=== PATIENT | female | born 1985 | race Caucasian/White ===

== ENCOUNTER 2016-07-18 11:59 | Emergency (ER) | payer MEDICAID ==
[2016-07-18 12:22] VITALS: BP 122/76
[2016-07-18] MEDS ORDERED: HYDROcod/ACETAM 5/325 MG TABLET PO STA (13:14)
[2016-07-18] MEDS ORDERED: HYDROcod/ACETAM 5/325 MG TABLET ONE (13:21)
--- NOTE | 2016-07-18 13:55 | XRAY Preliminary Report ---
Exam: XR Forearm RT IMPRESSION: Normal forearm radiography. [facility] SITE ID: [id number]
--- NOTE | 2016-07-18 13:58 | XRAY Report ---
EXAM: RIGHT FOREARM RADIOGRAPHY EXAM DATE: 07/18/2016 01:40 PM. CLINICAL HISTORY: Right forearm pain. COMPARISON: None. TECHNIQUE: 2 views. FINDINGS: Bones: Normal. No fractures or bone lesions. Joints: Normal. No effusions or subluxations in the visualized wrist or elbow joints. Soft Tissues: soft tissue swelling. IMPRESSION: Normal forearm radiography. [facility] Referring Provider Line: [phone] SITE ID: [id number]
--- NOTE | 2016-07-18 14:36 | ED Physician Documentation ---
PD HPI UPPER EXT INJURY - Stated complaint Stated Complaint: R ARM PX/TINGLING - Chief complaint Chief Complaint: Ext Problem - History obtained from History obtained from: Patient - History of Present Illness Location: Right, Forearm Type of injury: Fall Timing - details: Still present Worsened by: Moving, Palpating Associated symptoms: No: Weakness, Numbness Similar symptoms before: Has not had sx before - Additonal information Additional information: The patient is a 30-year-old female who complains of sharp pain in her right forearm. She fell into a three-foot hole one week ago, and presents now because of continued pain in the right forearm, worse today than previously. She is right hand dominant. She denies any other injuries. She has no history of similar symptoms in the past. Review of Systems Constitutional: denies: Fever Nose: denies: Congestion Cardiac: denies: Chest pain / pressure Respiratory: denies: Dyspnea GI: denies: Abdominal Pain Skin: denies: Rash, Abrasion (s) Musculoskeletal: reports: Extremity pain (right forearm). 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 : None HEENT: None Psych: Depression, Anxiety Musculoskeletal: Fibromyalgia Derm: None - Past Surgical History Past Surgical History: Yes Ortho: Other /SENIOR SOFTWARE ANALYST: Tubal ligation HEENT: Other - Present Medications Home Medications: Ambulatory Orders Medication Instructions Recorded Confirmed Bupropion HCl [Wellbutrin] 300 mg PO DAILY 07/12/13 07/18/16 Escitalopram [Lexapro] 20 mg PO DAILY 07/18/16 07/18/16 HYDROcod/ACETAM 5/325 [[place] 5/325] 1 - 2 ea PO Q6H PRN #20 tablet 07/18/16 - Allergies Allergies/Adverse Reactions: Allergies Allergy/AdvReac Type Severity Reaction Status Date / Time No Known Drug Allergies Allergy Verified 07/03/14 00:33 - Social History Does the pt smoke?: No Smoking Status: Former smoker Does the pt drink ETOH?: Yes Does the pt have substance abuse?: No - Immunizations Immunizations are current?: Yes - POLST Patient has POLST: No PD ED PE NORMAL - Vitals Vital signs reviewed: Yes (normal) - General General: Alert and oriented X 3, Well developed/nourished - HEENT HEENT: Atraumatic - Neck Neck: No bony TTP - Cardiac Cardiac: RRR - Respiratory Respiratory: No respiratory distress - Derm Derm: No rash - Extremities Extremities: No deformity, Other (There is tenderness to palpation along the ulnar aspect of the right proximal forearm. There is no swelling, erythema, or ecchymosis. She has full range of motion of the wrist and elbow, including supination and pronation of the forearm. Distal neurovascular is intact.) - Neuro Neuro: Alert and oriented X 3, No motor deficit, No sensory deficit Results - Vitals Vitals: Oxygen O2 Source Room air - Rads (name of study) Right forearm Radiology: Prelim report reviewed, EMP read contemporaneously, See rad report ( Normal forearm radiography.) PD MEDICAL DECISION MAKING - ED course Complexity details: reviewed results, re-evaluated patient, considered differential, d/w patient ED course: The patient's presentation is significant for muscular strain versus contusion of the right forearm. There is no evidence of bony abnormality on x-ray examination. Treatment in the emergency department included administration of Vicodin one tablet orally. She is being discharged with prescription for Vicodin, 20 tablets. I discussed with her the expected course of healing, symptomatic treatment and outpatient follow-up, as well as potentially worrisome signs or symptoms that should prompt reevaluation in the emergency department. Departure - Departure Disposition: 01 Home, Self Care Clinical Impression: Pain of upper extremity Qualifiers: Laterality: right Qualified Code(s): M79.601 - Pain in right arm Condition: Stable Instructions: ED Strain Muscle Ext Follow-Up: Katlyn Lindsay MD [Primary Care Provider] - Prescriptions: HYDROcod/ACETAM 5/325 [[place] 5/325] 1 - 2 ea PO Q6H PRN #20 tablet PRN Reason: Pain Comments: Keep your right arm elevated as much the time as possible. You can use ibuprofen, up to 800 mg 3 times daily for its anti-inflammatory effect. You can use Vicodin as prescribed if needed for pain. Follow up with your primary physician within one to 2 weeks. Call to schedule an appointment. Return to the emergency department if you develop increasing pain or swelling, increasing numbness or weakness, or otherwise worsening symptoms. Discharge Date/Time: 07/18/16 14:54
== END 2016-07-18 14:54 | disposition home or self-care (01) ==
LOC: ED 11:59
DX: M79.631 Pain in right forearm (principal); W17.2XXA Fall into hole, initial encounter; Z87.891 Personal history of nicotine dependence
CPT/HCPCS: 73090; 99283; A9270

== ENCOUNTER 2016-11-20 18:19 | Emergency (ER) | payer MEDICAID ==
[2016-11-20] MEDS ORDERED: SODIUM CHLORIDE 0.9% 1,000 ML IV ONE (19:08)
[2016-11-20] MEDS ORDERED: MORPHINE 10 MG/ML VIAL IVP STA (19:09)
--- NOTE | 2016-11-20 19:11 | ED Physician Documentation ---
PD HPI ABD PAIN - Stated complaint Stated Complaint: BACK PX - Chief complaint Chief Complaint: Back Pain - History obtained from History obtained from: Patient - History of Present Illness Timing - onset: Other (31-year-old with history of tubal ligation and fibromyalgia presents with 4 days of left-sided back pain radiating from the flank down to the posterior pelvis and around to the front associated with nausea but no vomiting and chills and a low-grade fever to 100.2 today and shakes. She feels like she might be hypoglycemic. She was seen at [facility] yesterday, she said she had a normal urinalysis but is being treated for presumptive pyelonephritis. 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 : None HEENT: None Psych: Depression, Anxiety Musculoskeletal: Fibromyalgia Derm: None - Past Surgical History Past Surgical History: Yes 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 HEENT: Other - Present Medications Home Medications: Ambulatory Orders Medication Instructions Recorded Confirmed Bupropion HCl [Wellbutrin] 300 mg PO DAILY 07/12/13 11/20/16 Escitalopram [Lexapro] 20 mg PO DAILY 07/18/16 11/20/16 Dextroamphetamine/Amphetamine 20 mg PO DAILY 11/20/16 11/20/16 [Adderall 20 mg Tablet] Dextroamphetamine/Amphetamine 30 tab PO DAILY 11/20/16 11/20/16 [Adderall 30 mg Tablet] HYDROcod/ACETAM 5/325 [[place] 5/325] 1 - 2 ea PO Q6H PRN #15 tablet 11/20/16 Promethazine [Phenergan] 25 - 50 mg PO Q6H PRN #15 tab 11/20/16 - Allergies Allergies/Adverse Reactions: Allergies Allergy/AdvReac Type Severity Reaction Status Date / Time No Known Drug Allergies Allergy Verified 07/03/14 00:33 - Social History Does the pt smoke?: No Smoking Status: Former smoker Does the pt drink ETOH?: Yes Does the pt have substance abuse?: No - Immunizations Immunizations are current?: Yes - POLST Patient has POLST: No PD ED PE NORMAL - Vitals Vital signs reviewed: Yes - General General: Alert and oriented X 3, No acute distress - HEENT HEENT: PERRL, EOMI - Cardiac Cardiac: RRR, No murmur - Respiratory Respiratory: No respiratory distress, Clear bilaterally - Abdomen Abdomen: Normal bowel sounds, Soft, Non tender - Back Back: No CVA TTP - Extremities Extremities: No edema, No calf tenderness / cord - Neuro Neuro: Alert and oriented X 3, Normal speech - Psych Psych: Normal mood, Normal affect Results - Vitals Vitals: Vital Signs - 24 hr 11/20/16 11/20/16 18:36 19:39 Temperature 35.6 C L 36.3 C L Heart Rate 83 71 Respiratory 18 17 Rate Blood Pressure 131/93 H 124/75 O2 Saturation 100 100 Oxygen O2 Source Room air - Labs Labs: Laboratory Tests 11/20/16 11/20/16 11/20/16 19:17 19:27 19:27 WBC 8.5 RBC 4.88 Hgb 13.8 Hct 41.6 MCV 85.3 MCH 28.3 MCHC 33.2 RDW 13.1 Plt Count 314 MPV 8.5 Neut # 4.8 Lymph # 2.5 [place] # 0.7 Eos # 0.5 Baso # 0.1 Absolute Nucleated RBC 0.01 Nucleated RBC % 0.1 Sodium 144 Potassium 3.9 Chloride 105 Carbon Dioxide 26 Anion Gap 13.0 BUN 12 Creatinine 1.2 H Estimated GFR (MDRD) 53 L Glucose 91 Calcium 9.8 Total Bilirubin 0.3 AST 26 ALT 21 Alkaline Phosphatase 77 Total Protein 7.9 Albumin 4.5 Globulin 3.4 Albumin/Globulin Ratio 1.3 Lipase 31 Urine Color YELLOW Urine Clarity CLEAR Urine pH 7.5 Ur Specific [place] 1.015 Urine Protein NEGATIVE Urine Glucose (UA) NEGATIVE Urine Ketones NEGATIVE Urine Occult Blood NEGATIVE Urine Nitrite NEGATIVE Urine Bilirubin NEGATIVE Urine Urobilinogen 0.2 (NORMAL) Ur Leukocyte Esterase NEGATIVE Ur Microscopic Review NOT INDICATED Urine Culture Comments NOT INDICATED Urine HCG, Qual NEGATIVE PD MEDICAL DECISION MAKING - ED course ED course: 31-year-old woman with left-sided back pain with some constitutional symptoms of nausea and low-grade fevers, she said she was seen at [facility] last night and diagnosed with pyelonephritis despite the fact that her urinalysis was negative which continues to be tonight. Her blood work is reassuring without any significant abnormalities. She felt better after pain and nausea medicine as well as IV fluids. Discussed with her that the etiology of her pain is not immediately clear, but she should monitor her symptoms closely and return for any new or worsening symptoms. Departure - Departure Disposition: 01 Home, Self Care Clinical Impression: Dehydration Back pain Qualifiers: Back pain location: low back pain Chronicity: acute Back pain laterality: left Sciatica presence: without sciatica Qualified Code(s): M54.5 - Low back pain Condition: Good Record reviewed to determine appropriate education?: Yes Instructions: ED Acute Pain [facility] Prescriptions: HYDROcod/ACETAM 5/325 [[place] 5/325] 1 - 2 ea PO Q6H PRN #15 tablet PRN Reason: Pain Promethazine [Phenergan] 25 - 50 mg PO Q6H PRN #15 tab PRN Reason: Nausea / Vomiting Comments: Call your doctor to arrange a follow-up appointment, make the next available appointment. In the interim, return anytime if worse or if new symptoms develop. Do not drink or drive while taking narcotic pain medication. Note that many narcotic pain relievers also contain Tylenol/acetaminophen. Please ensure that your total dose of acetaminophen from all sources does not exceed 3 g (3000 mg) per day. You may get constipated while on this medication. Take a stool softener such as Colace twice a day while you are on it. Also add an tyuz-gus-zihlkql laxative such as senna or MiraLAX on any day that you do not have a bowel movement. If you received a narcotic pain medication or sedative while in the emergency department, do not drive for the next 24 hours.
[2016-11-20 19:24] LABS: BILIRUBIN,URINE NEGATIVE (NEGATIVE); PH,URINE 7.5 PH (5.0-7.5)
[2016-11-20 19:26] LABS: HCG UR QUAL NEGATIVE; UA CHARGE (STRIP ONLY) YES; UR CULTURE IF IND NOT INDICATED
[2016-11-20] MEDS ORDERED: ONDANSETRON 4 MG/2 ML VIAL IVP STA (19:34)
[2016-11-20] MEDS ORDERED: MORPHINE 10 MG/ML VIAL ONE (19:42)
[2016-11-20] MEDS ORDERED: ONDANSETRON 4 MG/2 ML VIAL ONE (19:42)
[2016-11-20 19:43] LABS: BASOPHILS # (AUTO) 0.1 10^3/uL (0.0-0.1); BASOPHILS % (AUTO) 0.7 %; EOSINOPHILS # (AUTO) 0.5 10^3/uL (0.0-0.7); EOSINOPHILS % (AUTO) 5.8 %; HCT - HEMATOCRIT 41.6 % (37.0-47.0); HGB - HEMOGLOBIN 13.8 g/dL (12.0-16.0); LYMPHOCYTES # (AUTO) 2.5 10^3/uL (1.5-3.5); LYMPHOCYTES % (AUTO) 29.5 %; MEAN CORPUSCULAR HEMOGLOBIN 28.3 pg (27.0-31.0); MEAN CORPUSCULAR HGB CONC 33.2 g/dL (32.0-36.0); MEAN CORPUSCULAR VOLUME 85.3 fL (81.0-99.0); MEAN PLATELET VOLUME 8.5 fL (7.9-10.8); MONOCYTES # (AUTO) 0.7 10^3/uL (0.0-1.0); MONOCYTES % (AUTO) 7.8 %; NEUTROPHILS # (AUTO) 4.8 10^3/uL (1.5-6.6); NEUTROPHILS % (AUTO) 56.2 %; NUCLEATED RED BLOOD CELLS AUTO 0.1 /100WBC; RED BLOOD COUNT 4.88 10^6/uL (4.20-5.40); RED CELL DISTRIBUTION WIDTH 13.1 % (12.0-15.0); UNCORRECTED WHITE BLOOD COUNT 8.5 x10^3/uL; WHITE BLOOD COUNT 8.5 x10^3/uL (4.8-10.8)
[2016-11-20 19:52] LABS: ALBUMIN/GLOBULIN RATIO 1.3 (1.0-2.2); BILIRUBIN,TOTAL 0.3 mg/dL (0.2-1.0); CALCIUM 9.8 mg/dL (8.5-10.3); CREATININE 1.2 mg/dL (0.4-1.0); POTASSIUM 3.9 mmol/L (3.5-5.0); TOTAL PROTEIN 7.9 g/dL (6.7-8.2)
[2016-11-20] MEDS ORDERED: HYDROcod/ACET 5/325 Prepack 6 PO STA (20:54)
[2016-11-20] MEDS ORDERED: HYDROcod/ACET 5/325 Prepack 6 PO ONE (21:02)
[2016-11-20 21:06] VITALS: BP 125/70
== END 2016-11-20 21:20 | disposition home or self-care (01) ==
LOC: ED 18:19
DX: E86.0 Dehydration (principal); M54.5 Low back pain; M79.7 Fibromyalgia; Z87.891 Personal history of nicotine dependence
CPT/HCPCS: 36415; 80053; 81001; 81003; 81025; 83690; 85025; 87086; 96361; 96374; 96375; 99283

== ENCOUNTER 2016-11-28 15:25 | Outpatient (CLI) | payer MEDICAID ==
[2016-11-28 19:34] LABS: CHOL/HDL RATIO 2.9 (<4.4); CHOLESTEROL 212 mg/dL; HDL CHOLESTEROL 72 mg/dL; LDL/HDL RATIO 1.7 (<4.4); TRIGLYCERIDES 97 mg/dL; VLDL CHOLESTEROL 19 mg/dL
== END 2016-11-28 15:26 | disposition home or self-care (01) ==
LOC: LAB.N 15:25
PROVIDERS: ATTEND Nurse Practitioner Gerontology
DX: Z13.9 Encounter for screening, unspecified (principal)
CPT/HCPCS: 36415; 80061

== ENCOUNTER 2017-04-11 09:47 | Emergency (ER) | payer MEDICAID ==
--- NOTE | 2017-04-11 10:22 | ED Physician Documentation ---
History of Present Illness - Stated complaint Stated Complaint: LOWER ABD PX/BACK PX - Chief complaint Chief Complaint: Abd Pain - Additonal information Additional information: hx from pt 31 f s/p tubal to ED with lower abd pain rad to RLQ and R flank since yesterday AM no fever NVD bloody mucous BM today no vag bleed or dc no dysuria Review of Systems Constitutional: denies: Fever, Chills Cardiac: denies: Chest pain / pressure GI: reports: Abdominal Pain, Bloody / black stool. denies: Nausea, Vomiting, Diarrhea : reports: Control (tubal). 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: Tubal ligation HEENT: Other - Present Medications Home Medications: Ambulatory Orders Medication Instructions Recorded Confirmed Bupropion HCl [Wellbutrin] 300 mg PO DAILY 07/12/13 11/20/16 Escitalopram [Lexapro] 20 mg PO DAILY 07/18/16 11/20/16 Dextroamphetamine/Amphetamine 20 mg PO DAILY 11/20/16 11/20/16 [Adderall 20 mg Tablet] Dextroamphetamine/Amphetamine 30 tab PO DAILY 11/20/16 11/20/16 [Adderall 30 mg Tablet] HYDROcod/ACETAM 5/325 [[place] 5/325] 1 - 2 ea PO Q6H PRN #15 tablet 11/20/16 Promethazine [Phenergan] 25 - 50 mg PO Q6H PRN #15 tab 11/20/16 Ibuprofen [Motrin] 400 mg PO Q6H PRN #20 tablet 04/11/17 Oxycodone HCl/Acetaminophen 1 each PO Q6HR PRN #10 tablet 04/11/17 [Percocet 5-325 mg Tablet] - Allergies Allergies/Adverse Reactions: Allergies Allergy/AdvReac Type Severity Reaction Status Date / Time No Known Drug Allergies Allergy Verified 07/03/14 00:33 - Social History Does the pt smoke?: No Smoking Status: Former smoker Does the pt drink ETOH?: Yes Does the pt have substance abuse?: No - Immunizations Immunizations are current?: Yes - POLST Patient has POLST: No PD ED PE NORMAL - Vitals Vital signs reviewed: Yes - Cardiac Cardiac: RRR - Respiratory Respiratory: No respiratory distress, Clear bilaterally - Abdomen Abdomen: Soft, Other (mod TTP low abd, no focal RLQ pain) - Rectal Rectal: Other (done with pt permissio after explaining indication - + hemorrhoid , no fissure, no vis blood, no stool to occult blood, no mass on OSCAR) Results - Vitals Vitals: Vital Signs - 24 hr 04/11/17 10:08 Temperature 36.4 C L Heart Rate 88 Respiratory 16 Rate Blood Pressure 118/69 O2 Saturation 100 Oxygen O2 Source Room air - Labs Labs: Laboratory Tests 04/11/17 04/11/17 04/11/17 10:27 10:27 12:11 WBC 5.3 RBC 4.73 Hgb 13.1 Hct 39.6 MCV 83.8 MCH 27.8 MCHC 33.1 RDW 13.9 Plt Count 238 MPV 8.5 Neut # 3.1 Lymph # 1.3 L [place] # 0.5 Eos # 0.4 Baso # 0.1 Absolute Nucleated RBC 0.00 Nucleated RBC % 0.0 Sodium 141 Potassium 3.5 Chloride 106 Carbon Dioxide 26 Anion Gap 9.0 BUN 9 Creatinine 0.8 Estimated GFR (MDRD) 84 L Glucose 62 L Calcium 9.3 Total Bilirubin 0.3 AST 25 ALT 16 Alkaline Phosphatase 65 Total Protein 7.7 Albumin 4.1 Globulin 3.6 Albumin/Globulin Ratio 1.1 Lipase 12 L Urine Color YELLOW Urine Clarity CLEAR Urine pH 7.0 Ur Specific [place] 1.020 Urine Protein NEGATIVE Urine Glucose (UA) NEGATIVE Urine Ketones NEGATIVE Urine Occult Blood NEGATIVE Urine Nitrite NEGATIVE Urine Bilirubin NEGATIVE Urine Urobilinogen 0.2 (NORMAL) Ur Leukocyte Esterase NEGATIVE Ur Microscopic Review NOT INDICATED Urine Culture Comments NOT INDICATED Urine HCG, Qual NEGATIVE - Rads (name of study) abd sono and pelvic sono with TV and doppler Radiology: See rad report (nl right kidney, appemdic non vis) PD MEDICAL DECISION MAKING - ED course ED course: ruptured hem ovarian cyst neg HCG and s/p tibal approx 20-30 cc per rad nl VS nl H/H and sx started yesterday feel safe to dc Departure - Departure Disposition: Home, Self Care Clinical Impression: Hemorrhagic cyst of right ovary Condition: Good Instructions: Cyst Ruptured Ovarian Tx Prescriptions: Oxycodone HCl/Acetaminophen [Percocet 5-325 mg Tablet] 1 each PO Q6HR PRN #10 tablet PRN Reason: Severe Pain Ibuprofen [Motrin] 400 mg PO Q6H PRN #20 tablet PRN Reason: Pain Comments: Your pain is form a rupture hemorrhagic (bleeding) ovarian cyst There is some blood in your pelvic cavity but not a dangerous amount and your blood count and vital signs are fine - so it is safe for you to go home It will take several days for the blood to reabsorb and the pain to subside - recommend motrin for mild pain and percocet if needed for severe pain It is possible for the cyst to start bleeding again, so if you feel worse ( severe pain, faint, weak) please come back to the ER right away Forms: Activity restrictions
[2017-04-11] MEDS ORDERED: MORPHINE 2 MG/ML CARPUJECT IVP STA ×2 (10:23→11:47)
[2017-04-11] MEDS ORDERED: SODIUM CHLORIDE 0.9% 1,000 ML IV ONE (10:23)
[2017-04-11 10:39] LABS: BASOPHILS # (AUTO) 0.1 10^3/uL (0.0-0.1); EOSINOPHILS # (AUTO) 0.4 10^3/uL (0.0-0.7); EOSINOPHILS % (AUTO) 6.7 %; HGB - HEMOGLOBIN 13.1 g/dL (12.0-16.0); LYMPHOCYTES # (AUTO) 1.3 10^3/uL (1.5-3.5); LYMPHOCYTES % (AUTO) 24.3 %; MEAN CORPUSCULAR HEMOGLOBIN 27.8 pg (27.0-31.0); MEAN CORPUSCULAR HGB CONC 33.1 g/dL (32.0-36.0); MEAN CORPUSCULAR VOLUME 83.8 fL (81.0-99.0); MEAN PLATELET VOLUME 8.5 fL (7.9-10.8); MONOCYTES # (AUTO) 0.5 10^3/uL (0.0-1.0); NEUTROPHILS # (AUTO) 3.1 10^3/uL (1.5-6.6); PLT - PLATELET COUNT 238 10^3/uL (130-450); RED BLOOD COUNT 4.73 10^6/uL (4.20-5.40); RED CELL DISTRIBUTION WIDTH 13.9 % (12.0-15.0); WHITE BLOOD COUNT 5.3 x10^3/uL (4.8-10.8)
[2017-04-11 10:54] LABS: ALBUMIN 4.1 g/dL (3.2-5.5); ALBUMIN/GLOBULIN RATIO 1.1 (1.0-2.2); BILIRUBIN,TOTAL 0.3 mg/dL (0.2-1.0); CALCIUM 9.3 mg/dL (8.5-10.3); CREATININE 0.8 mg/dL (0.4-1.0); TOTAL PROTEIN 7.7 g/dL (6.7-8.2)
[2017-04-11 12:38] LABS: BILIRUBIN,URINE NEGATIVE (NEGATIVE); GLUCOSE, URINE (UA) NEGATIVE (NEGATIVE); KETONES,URINE (UA) NEGATIVE (NEGATIVE); LEUKOCYTE ESTERASE, URINE NEGATIVE (NEGATIVE); NITRITE,URINE NEGATIVE (NEGATIVE); OCCULT BLOOD,URINE NEGATIVE (NEGATIVE); PROTEIN,URINE NEGATIVE (NEGATIVE); UROBILINOGEN,URINE 0.2 (NORMAL) E.U./dL (NORMAL)
[2017-04-11 12:41] LABS: CLARITY,URINE CLEAR (CLEAR); HCG UR QUAL NEGATIVE
--- NOTE | 2017-04-11 13:47 | Ultrasound Report ---
LIMITED ABDOMINAL ULTRASOUND: 04/11/2017 CLINICAL INDICATION: Right-sided pain, question hydronephrosis or appendicitis. TECHNIQUE: Real-time scanning was performed with employee's representative static images obtained. FINDINGS: Ultrasound of the right kidney and right lower quadrant was performed. The right kidney measures 10.3 x 5.7 x 3.2 cm. Renal cortical echotexture is normal. No hydronephrosis, solid renal mass, or perinephric collection is seen. Scanning of the right lower quadrant does not demonstrate the appendix. Trace free fluid is noted. No abnormal fluid collection or adenopathy is seen. IMPRESSION: NORMAL RIGHT KIDNEY. TRACE FREE FLUID IN THE RIGHT LOWER QUADRANT. NONVISUALIZATION OF THE APPENDIX. TD: 04/11/2017 13:46
--- NOTE | 2017-04-11 13:50 | Ultrasound Report ---
PELVIC ULTRASOUND WITH TRANSVAGINAL AND DOPPLER: 04/11/2017 CLINICAL INDICATION: Right greater than left pelvic pain. TECHNIQUE: Transabdominal pelvic ultrasound performed for global evaluation. Transvaginal pelvic ultrasound performed for detailed evaluation. Real-time scanning performed and static images obtained with Doppler. FINDINGS: The uterus is anteverted, measuring 5.1 x 4.3 x 3.9 cm. The endometrial echo complex measures 10 mm. No focal myometrial lesion is seen. The right ovary measures 4.6 x 3.0 x 2.9 cm, and contains a 2.5 x 2.4 x 2.3 cm hemorrhagic cyst. The left ovary measures 2.3 x 2.3 x 1.2 cm, and appears unremarkable. Both ovaries demonstrate normal flow. A moderate amount of free fluid is present in the cul-de-sac, tracking up into the right adnexa. IMPRESSION: A 2.5 CM HEMORRHAGIC RIGHT OVARIAN CYST, WITH A MODERATE AMOUNT OF FREE FLUID PRESENT. NO EVIDENCE OF OVARIAN TORSION. TD: 04/11/2017 13:49
[2017-04-11 15:22] VITALS: BP 122/68
== END 2017-04-11 14:45 | disposition home or self-care (01) ==
LOC: ED 09:47
DX: N83.201 Unspecified ovarian cyst, right side (principal); Z98.51 Tubal ligation status; Z87.891 Personal history of nicotine dependence
CPT/HCPCS: 36415; 76705; 76830; 76856; 80053; 81001; 81003; 81025; 83690; 85025; 87086; 93975; 96361; 96374; 96376; 99283; 99284

== ENCOUNTER 2017-04-12 23:05 | Emergency (ER) | payer MEDICAID ==
[2017-04-12] MEDS ORDERED: KETOROLAC 60 MG/2 ML VIAL IVP STA (23:12)
[2017-04-12] MEDS ORDERED: SODIUM CHLORIDE 0.9% 1,000 ML IV ONE (23:12)
--- NOTE | 2017-04-12 23:25 | ED Physician Documentation ---
PD HPI ABD PAIN - Stated complaint Stated Complaint: FEV/LIGHT HEAD - Chief complaint Chief Complaint: Abd Pain - History obtained from History obtained from: Patient - History of Present Illness Timing - onset: Yesterday Timing - details: Gradual onset, Still present Quality: Cramping, Aching Location: Suprapubic Radiation: Right flank Associated symptoms: Fever, Nausea. No: Vomiting, Hematemesis Similar symptoms before: Work up / diagnostics, Treatment Recently seen: Emergency Dept - Additional information Additional information: Patient is a 31 year old female with a history of depression and fibromyalgia who is presenting to the emergency department for abdominal pain, dizziness and fevers. According to previous notes and patient she was seen her yesterday and was diagnosed with a hemorrhagic cyst with minimal free fluid. Patient states that her pain came back today. Patient reports a fever of 101 and nausea as well. Review of Systems Constitutional: reports: Fever, Chills, Myalgias Eyes: denies: Decreased vision Ears: denies: Ear pain Nose: denies: Rhinorrhea / runny nose, Congestion Throat: denies: Sore throat Cardiac: denies: Chest pain / pressure, Palpitations Respiratory: denies: Dyspnea, Cough, Wheezing GI: reports: Abdominal Pain, Nausea. denies: Vomiting, Constipation, Diarrhea : denies: Dysuria, Frequency Skin: denies: Rash, Lesions Musculoskeletal: reports: Back pain. denies: Neck pain, Extremity pain, Joint pain Neurologic: reports: Generalized weakness. denies: Focal weakness, Numbness, Altered mental status, LOC Psychiatric: reports: Depressed Immunocompromised: denies: Immunocompromised PD PAST MEDICAL HISTORY - Past Medical History Past Medical History: Yes Cardiovascular: None Respiratory: None Neuro: None, Headache/migraine Endocrine/Autoimmune: None GI: None SPECIFICATIONS CHECKER: None : None HEENT: None Psych: Depression, Anxiety Musculoskeletal: Fibromyalgia Derm: None - Past Surgical History Past Surgical History: Yes Ortho: Other /SPECIFICATIONS CHECKER: Tubal ligation HEENT: Other - Present Medications Home Medications: Ambulatory Orders Medication Instructions Recorded Confirmed Bupropion HCl [Wellbutrin] 300 mg PO DAILY 07/12/13 11/20/16 Escitalopram [Lexapro] 20 mg PO DAILY 07/18/16 11/20/16 Dextroamphetamine/Amphetamine 20 mg PO DAILY 11/20/16 11/20/16 [Adderall 20 mg Tablet] Dextroamphetamine/Amphetamine 30 tab PO DAILY 11/20/16 11/20/16 [Adderall 30 mg Tablet] HYDROcod/ACETAM 5/325 [[place] 5/325] 1 - 2 ea PO Q6H PRN #15 tablet 11/20/16 Promethazine [Phenergan] 25 - 50 mg PO Q6H PRN #15 tab 11/20/16 Ibuprofen [Motrin] 400 mg PO Q6H PRN #20 tablet 04/11/17 Oxycodone HCl/Acetaminophen 1 each PO Q6HR PRN #10 tablet 04/11/17 [Percocet 5-325 mg Tablet] Ondansetron Odt [Zofran] 4 mg TL Q6H PRN #14 tablet 04/13/17 - Allergies Allergies/Adverse Reactions: Allergies Allergy/AdvReac Type Severity Reaction Status Date / Time No Known Drug Allergies Allergy Verified 04/12/17 23:14 - Social History Does the pt smoke?: No Smoking Status: Never smoker Does the pt drink ETOH?: Yes Does the pt have substance abuse?: No - Immunizations Immunizations are current?: Yes - POLST Patient has POLST: No PD ED PE NORMAL - Vitals Vital signs reviewed: Yes - General General: Alert and oriented X 3, No acute distress - HEENT HEENT: Atraumatic, PERRL, Moist mucous membranes - Cardiac Cardiac: RRR, No murmur - Respiratory Respiratory: No respiratory distress - Abdomen Abdomen: Soft - Derm Derm: Normal color, Warm and dry, No rash - Extremities Extremities: No deformity, No edema - Neuro Neuro: Alert and oriented X 3, No motor deficit, No sensory deficit, Normal speech Eye Opening: Spontaneous PD ED PE EXPANDED - Abdomen Abdomen: Tender to palpation. No: Rebound, Guarding Results - Vitals Vitals: Vital Signs - 24 hr 04/12/17 23:05 Temperature 36.6 C Heart Rate 82 Respiratory 18 Rate Blood Pressure 125/81 H O2 Saturation 100 Oxygen O2 Source Room air - Labs Labs: Laboratory Tests 04/12/17 04/12/17 04/12/17 23:19 23:20 23:20 WBC 6.2 RBC 4.56 Hgb 12.7 Hct 38.0 MCV 83.4 MCH 28.0 MCHC 33.5 RDW 13.6 Plt Count 228 MPV 8.3 Neut # 3.6 Lymph # 1.8 [place] # 0.6 Eos # 0.2 Baso # 0.0 Absolute Nucleated RBC 0.00 Nucleated RBC % 0.0 Sodium 140 Potassium 3.7 Chloride 104 Carbon Dioxide 24 Anion Gap 12.0 BUN 11 Creatinine 0.7 Estimated GFR (MDRD) 98 Glucose 85 Calcium 8.9 Total Bilirubin 0.4 AST 25 ALT 19 Alkaline Phosphatase 68 Total Protein 7.7 Albumin 4.1 Globulin 3.6 Albumin/Globulin Ratio 1.1 Lipase 10 L Urine Color YELLOW Urine Clarity CLEAR Urine pH 6.0 Ur Specific [place] <=1.005 Urine Protein NEGATIVE Urine Glucose (UA) NEGATIVE Urine Ketones NEGATIVE Urine Occult Blood NEGATIVE Urine Nitrite NEGATIVE Urine Bilirubin NEGATIVE Urine Urobilinogen 0.2 (NORMAL) Ur Leukocyte Esterase NEGATIVE Ur Microscopic Review NOT INDICATED Urine Culture Comments NOT INDICATED Influenza A (Rapid) Influenza B (Rapid) Influenza Types A,B Ag 04/12/17 23:20 WBC RBC Hgb Hct MCV MCH MCHC RDW Plt Count MPV Neut # Lymph # [place] # Eos # Baso # Absolute Nucleated RBC Nucleated RBC % Sodium Potassium Chloride Carbon Dioxide Anion Gap BUN Creatinine Estimated GFR (MDRD) Glucose Calcium Total Bilirubin AST ALT Alkaline Phosphatase Total Protein Albumin Globulin Albumin/Globulin Ratio Lipase Urine Color Urine Clarity Urine pH Ur Specific [place] Urine Protein Urine Glucose (UA) Urine Ketones Urine Occult Blood Urine Nitrite Urine Bilirubin Urine Urobilinogen Ur Leukocyte Esterase Ur Microscopic Review Urine Culture Comments Influenza A (Rapid) Negative Influenza B (Rapid) POSITIVE H Influenza Types A,B Ag + H PD MEDICAL DECISION MAKING - ED course Complexity details: reviewed old records, reviewed results, re-evaluated patient , considered differential, d/w patient, d/w family ED course: Patient was seen and examined at bedside. IV access was gained, labs were drawn. Patient was treated with toradol for pain and urine was collected. Patient's diagnostics revealed influenza. Patient had no episodes of emesis in the emergency department, she was also afebrile and outside the time limit of tamiflu. Patient required no further inpatient work up and was stable for discharge with outpatient follow up. Departure - Departure Disposition: 01 Home, Self Care Clinical Impression: Influenza A Condition: Good Instructions: ED Flu Follow-Up: primary,care provider [Other] - As Needed Prescriptions: Ondansetron Odt [Zofran] 4 mg TL Q6H PRN #14 tablet PRN Reason: Nausea / Vomiting Comments: Your symptoms today are being caused by the flu. There is no specific treatment for it, only to treat the symptoms. you should take zofran for nausea and make sure you drink plenty of fluids and get plenty of rest. You can take over the counter cold and flu medications as needed. Your symptoms may last up to a week. You are contagious so be careful with handling your children.
[2017-04-12 23:35] LABS: BILIRUBIN,URINE NEGATIVE (NEGATIVE); GLUCOSE, URINE (UA) NEGATIVE (NEGATIVE); KETONES,URINE (UA) NEGATIVE (NEGATIVE); LEUKOCYTE ESTERASE, URINE NEGATIVE (NEGATIVE); NITRITE,URINE NEGATIVE (NEGATIVE); OCCULT BLOOD,URINE NEGATIVE (NEGATIVE); PROTEIN,URINE NEGATIVE (NEGATIVE); UROBILINOGEN,URINE 0.2 (NORMAL) E.U./dL (NORMAL)
[2017-04-12 23:36] LABS: CLARITY,URINE CLEAR (CLEAR)
[2017-04-12 23:39] LABS: BASOPHILS % (AUTO) 0.6 %; EOSINOPHILS # (AUTO) 0.2 10^3/uL (0.0-0.7); HGB - HEMOGLOBIN 12.7 g/dL (12.0-16.0); LYMPHOCYTES # (AUTO) 1.8 10^3/uL (1.5-3.5); LYMPHOCYTES % (AUTO) 29.4 %; MEAN CORPUSCULAR HGB CONC 33.5 g/dL (32.0-36.0); MEAN CORPUSCULAR VOLUME 83.4 fL (81.0-99.0); MEAN PLATELET VOLUME 8.3 fL (7.9-10.8); MONOCYTES # (AUTO) 0.6 10^3/uL (0.0-1.0); MONOCYTES % (AUTO) 9.5 %; NEUTROPHILS # (AUTO) 3.6 10^3/uL (1.5-6.6); NEUTROPHILS % (AUTO) 57.5 %; PLT - PLATELET COUNT 228 10^3/uL (130-450); RED BLOOD COUNT 4.56 10^6/uL (4.20-5.40); RED CELL DISTRIBUTION WIDTH 13.6 % (12.0-15.0); WHITE BLOOD COUNT 6.2 x10^3/uL (4.8-10.8)
[2017-04-12 23:49] LABS: ALBUMIN 4.1 g/dL (3.2-5.5); ALBUMIN/GLOBULIN RATIO 1.1 (1.0-2.2); BILIRUBIN,TOTAL 0.4 mg/dL (0.2-1.0); CALCIUM 8.9 mg/dL (8.5-10.3); CREATININE 0.7 mg/dL (0.4-1.0); TOTAL PROTEIN 7.7 g/dL (6.7-8.2)
[2017-04-13] MEDS ORDERED: DICYCLOMINE 10 MG CAPSULE PO STA (00:44)
[2017-04-13] MEDS ORDERED: ACETAMINOPHEN 500 MG TABLET PO STA (00:44)
[2017-04-13 00:59] VITALS: BP 110/68
--- NOTE | 2017-04-13 20:02 | ED Physician Documentation ---
ED Addendum - Addendum Addendum: 04/13/17 20:02 unscheduled return visit - chart accessed for follow up and educational purposes
== END 2017-04-13 00:59 | disposition home or self-care (01) ==
LOC: ED 23:05
DX: J10.1 Influenza due to other identified influenza virus with other respiratory manifestations (principal)
CPT/HCPCS: 36415; 80053; 81003; 83690; 85025; 87275; 87276; 96361; 96374; 99283; 99284; A9270; 81001; 87086

== ENCOUNTER 2017-05-05 13:07 | Outpatient (CLI) | payer MEDICAID ==
--- NOTE | 2017-05-05 15:37 | Ultrasound Report ---
PELVIC ULTRASOUND: 05/05/2017 CLINICAL INDICATION: Followup hemorrhagic right ovarian cyst. COMPARISON: 04/11/2017. TECHNIQUE: Transabdominal pelvic ultrasound performed for global evaluation. Transvaginal pelvic ultrasound performed for detailed evaluation. Real-time scanning performed and static images obtained. FINDINGS: The uterus is anteverted, measuring 6.9 x 4.0 x 3.0 cm. The endometrial echo complex measures 2 mm. No focal myometrial lesion is appreciated. The right ovary is normal, measuring 2.6 x 1.9 x 1.8 cm. The left ovary measures 2.8 x 2.6 x 1.9 cm, and demonstrates incidental follicles. No free fluid is present. IMPRESSION: RESOLUTION OF PREVIOUSLY SEEN RIGHT HEMORRHAGIC OVARIAN CYST AND FREE FLUID. NORMAL PELVIC ULTRASOUND. TD: 05/05/2017 15:36
--- NOTE | 2017-05-05 15:39 | Ultrasound Report ---
ULTRASOUND OF LEFT POSTERIOR NECK: 05/05/2017 CLINICAL INDICATION: Palpable abnormality. TECHNIQUE: Real-time scanning was performed with retention representative static images obtained. FINDINGS: Ultrasound of the palpable abnormality identified by the patient was performed. Unremarkable subcutaneous fat and musculature is seen. No discrete solid or cystic lesion is identified. IMPRESSION: NO SONOGRAPHIC CORRELATE TO THE PALPABLE ABNORMALITY. TD: 05/05/2017 15:38
== END 2017-05-05 13:08 | disposition home or self-care (01) ==
LOC: DI 13:07
PROVIDERS: ATTEND Nurse Practitioner Gerontology
DX: L72.9 Follicular cyst of the skin and subcutaneous tissue, unspecified (principal); Z87.42 Personal history of other diseases of the female genital tract
CPT/HCPCS: 76536; 76830; 76856

== ENCOUNTER 2017-07-13 20:04 | Emergency (ER) | payer MEDICAID ==
[2017-07-13 21:25] LABS: BILIRUBIN,URINE NEGATIVE (NEGATIVE); GLUCOSE, URINE (UA) NEGATIVE (NEGATIVE); KETONES,URINE (UA) NEGATIVE (NEGATIVE); LEUKOCYTE ESTERASE, URINE NEGATIVE (NEGATIVE); NITRITE,URINE NEGATIVE (NEGATIVE); OCCULT BLOOD,URINE SMALL (NEGATIVE); PROTEIN,URINE NEGATIVE (NEGATIVE); UROBILINOGEN,URINE 0.2 (NORMAL) E.U./dL (NORMAL)
--- NOTE | 2017-07-13 21:34 | ED Physician Documentation ---
PD HPI URI - Stated complaint Stated Complaint: FEVER/THROAT PX/BODY ACHE - Chief complaint Chief Complaint: Heent - History obtained from History obtained from: Patient - History of Present Illness Timing duration: Days Timing details: Gradual onset, Still present Associated symptoms: Fever, Chills, Sweats, Sore throat, Swollen nodes Contributing factors: Sick contact (her 2 daughters Dx with strep throat last week and on abx currently.) Similar symptoms before: Has not had sx before Recently seen: Not recently seen Review of Systems Constitutional: reports: Fever, Chills, Myalgias Nose: denies: Rhinorrhea / runny nose, Congestion Throat: reports: Sore throat Respiratory: denies: Cough GI: denies: Abdominal Pain, Nausea, Vomiting, Diarrhea Skin: denies: Rash PD PAST MEDICAL HISTORY - Past Medical History Past Medical History: Yes Cardiovascular: None Respiratory: None Endocrine/Autoimmune: None GI: None BEER COOLER: None : None HEENT: None Psych: Depression, Anxiety Musculoskeletal: Fibromyalgia Derm: None - Past Surgical History Past Surgical History: Yes Ortho: Other /BEER COOLER: Tubal ligation HEENT: Other - Present Medications Home Medications: Ambulatory Orders Medication Instructions Recorded Confirmed Bupropion HCl [Wellbutrin] 300 mg PO DAILY 07/12/13 11/20/16 Escitalopram [Lexapro] 20 mg PO DAILY 07/18/16 11/20/16 Dextroamphetamine/Amphetamine 20 mg PO DAILY 11/20/16 11/20/16 [Adderall 20 mg Tablet] Dextroamphetamine/Amphetamine 30 tab PO DAILY 11/20/16 11/20/16 [Adderall 30 mg Tablet] HYDROcod/ACETAM 5/325 [[place] 5/325] 1 - 2 ea PO Q6H PRN #15 tablet 11/20/16 Promethazine [Phenergan] 25 - 50 mg PO Q6H PRN #15 tab 11/20/16 Ibuprofen [Motrin] 400 mg PO Q6H PRN #20 tablet 04/11/17 Oxycodone HCl/Acetaminophen 1 each PO Q6HR PRN #10 tablet 04/11/17 [Percocet 5-325 mg Tablet] Ondansetron Odt [Zofran] 4 mg TL Q6H PRN #14 tablet 04/13/17 Cephalexin [Keflex] 500 mg PO TID #21 capsule 07/13/17 Dexamethasone [Decadron] 4 mg PO DAILY #5 tablet 07/13/17 Gentamicin Sulfate 1 applic TP TID #15 cream..g. 07/13/17 HYDROcod/ACETAM 5/325 [[place] 5/325] 1 tab PO Q6H PRN #12 tablet 07/13/17 - Allergies Allergies/Adverse Reactions: Allergies Allergy/AdvReac Type Severity Reaction Status Date / Time No Known Drug Allergies Allergy Verified 04/12/17 23:14 - Social History Does the pt smoke?: No Smoking Status: Never smoker Does the pt drink ETOH?: Yes Does the pt have substance abuse?: No - Immunizations Immunizations are current?: Yes - POLST Patient has POLST: No PD ED PE NORMAL - Vitals Vital signs reviewed: Yes - General General: Alert and oriented X 3, Well developed/nourished, Other (appears in pain swallowing) - HEENT HEENT: No: Pharynx benign (redness with swelling and exudate of tonsils. No peritonsillar swelling. ) - Neck Neck: Supple, no meningeal sign, Other (anterior adenopathy) - Cardiac Cardiac: RRR, No murmur - Respiratory Respiratory: Clear bilaterally - Abdomen Abdomen: Soft, Non tender - Derm Derm: Normal color, Warm and dry, No rash - Extremities Extremities: No tenderness to palpate, Normal ROM s pain, No edema, No calf tenderness / cord - Neuro Neuro: Alert and oriented X 3, No motor deficit, Normal speech Results - Vitals Vitals: Vital Signs - 24 hr 07/13/17 22:32 Temperature 36.0 C L Heart Rate 90 Respiratory 18 Rate Blood Pressure 108/67 O2 Saturation 99 Oxygen O2 Source Room air - Labs Labs: Laboratory Tests 07/13/17 07/13/17 20:20 21:10 Urine Color YELLOW Urine Clarity CLEAR Urine pH 6.0 Ur Specific [place] >=1.030 H Urine Protein NEGATIVE Urine Glucose (UA) NEGATIVE Urine Ketones NEGATIVE Urine Occult Blood SMALL H Urine Nitrite NEGATIVE Urine Bilirubin NEGATIVE Urine Urobilinogen 0.2 (NORMAL) Ur Leukocyte Esterase NEGATIVE Urine RBC 0-5 Urine WBC 4-5 Ur Squamous Epith Cells MANY Squamous H Urine Bacteria None Seen Ur Microscopic Review INDICATED Urine Culture Comments NOT INDICATED Group A Strep Rapid POSITIVE H PD MEDICAL DECISION MAKING - ED course Complexity details: reviewed results, considered differential, d/w patient Departure - Departure Disposition: 01 Home, Self Care Clinical Impression: Acute streptococcal pharyngitis Condition: Stable Record reviewed to determine appropriate education?: Yes Instructions: ED Strep Pharyngitis Conf Follow-Up: Evelyn Sun ARNP [Primary Care Provider] - Prescriptions: Cephalexin [Keflex] 500 mg PO TID #21 capsule Dexamethasone [Decadron] 4 mg PO DAILY #5 tablet Gentamicin Sulfate 1 applic TP TID #15 cream..g. HYDROcod/ACETAM 5/325 [[place] 5/325] 1 tab PO Q6H PRN #12 tablet PRN Reason: Pain Comments: Your throat strep test was positive. Your urine test did not show signs of infection. The body aches and general symptoms you have are common enough from strep throat. This should improve as we treat on the infection. Cephalexin 3 times a day for a week. Decadron steroid anti-inflammatory daily for 5 more days. Use Tylenol or hydrocodone if needed for pains over the next couple of few days. You could use gentamicin topical antibiotic to the skin sores to help those heal up below faster as well. Recheck if not improved over the next few days. Discharge Date/Time: 07/13/17 22:37
[2017-07-13] MEDS ORDERED: cephALEXin 250 MG CAPSULE PO STA (21:48)
[2017-07-13] MEDS ORDERED: DEXAMETHASONE 10 MG/ML VIAL PO STA (21:48)
[2017-07-13 21:49] LABS: CLARITY,URINE CLEAR (CLEAR)
[2017-07-13] MEDS ORDERED: HYDROcod/ACET 5/325 Prepack 4 PO STA (21:49)
[2017-07-13] MEDS ORDERED: HYDROcod/ACETAM 5/325 MG TABLET PO STA (21:49)
[2017-07-13 21:52] LABS: BACTERIA,URINE None Seen /HPF (None Seen); RBC,URINE 0-5 /HPF (0-5); SQUAMOUS EPITHELIAL CELL,UR MANY Squamous (<= Few)
[2017-07-13] MEDS ORDERED: CHERRY SYRUP 10 ML UDC PO ONE (22:07)
[2017-07-13 22:32] VITALS: BP 108/67
== END 2017-07-13 22:37 | disposition home or self-care (01) ==
LOC: ED 20:04
DX: J02.0 Streptococcal pharyngitis (principal); M79.7 Fibromyalgia
CPT/HCPCS: 81001; 87430; 99283; A9270; 81003; 87086

== ENCOUNTER 2017-09-19 21:58 | Outpatient (CLI) | payer MEDICAID | END 2017-09-19 21:59 | disposition critical access hospital (66) | LOC: EMS 21:58 | PROVIDERS: ATTEND Surgery | DX: R52 Pain, unspecified (principal) | CPT/HCPCS: A0425; A0427; A0999 ==

== ENCOUNTER 2017-09-19 22:22 | Emergency (ER) | payer MEDICAID ==
--- NOTE | 2017-09-19 22:35 | ED Physician Documentation ---
History of Present Illness - Stated complaint Stated Complaint: GLOBAL MUSCLE SPASM - Chief complaint Chief Complaint: General - History obtained from History obtained from: Patient, Family - History of Present Illness Timing: Today Pain level now: 5 Improved by: nothing Worsened by: no exacerbating factors - Additonal information Additional information: seen by her pain management physician yesterday (U.W.), rx naltrexone (this is new rx for her), took first dose 6:30 PM today. within an hour, she had rapid onset of anxiety, diaphoresis, generalized body spasms (per patient) and discomfort, restlessness. Review of Systems Constitutional: reports: Sweats Cardiac: reports: Reviewed and negative Respiratory: reports: Reviewed and negative GI: reports: Nausea. denies: Abdominal Pain, Vomiting : reports: Reviewed and negative Neurologic: denies: Generalized weakness, Headache PD PAST MEDICAL HISTORY - Past Medical History Past Medical History: Yes Cardiovascular: None Respiratory: None Endocrine/Autoimmune: None GI: None TWISTER DOFFER: None : None HEENT: None Psych: Depression, Anxiety Musculoskeletal: Fibromyalgia Derm: None - Past Surgical History Past Surgical History: Yes Ortho: Other /TWISTER DOFFER: Tubal ligation HEENT: Other - Present Medications Home Medications: Ambulatory Orders Medication Instructions Recorded Confirmed Bupropion HCl [Wellbutrin] 300 mg PO DAILY 07/12/13 11/20/16 Dextroamphetamine/Amphetamine 30 tab PO DAILY 11/20/16 11/20/16 [Adderall 30 mg Tablet] LORazepam [Lorazepam] 0.5 - 1 mg PO TID PRN #14 tablet 09/20/17 oxyCODONE/ACET 5/325 [Percocet 5 1 - 2 each PO Q6H PRN #10 tablet 09/20/17 mg/325 mg] - Allergies Allergies/Adverse Reactions: Allergies Allergy/AdvReac Type Severity Reaction Status Date / Time No Known Drug Allergies Allergy Verified 09/19/17 22:30 - Social History Does the pt smoke?: No Smoking Status: Never smoker Does the pt drink ETOH?: Yes Does the pt have substance abuse?: No - Immunizations Immunizations are current?: Yes - POLST Patient has POLST: No PD ED PE NORMAL - Vitals Vital signs reviewed: Yes - General General: Alert and oriented X 3, Well developed/nourished, Other (hyperkinetic, thrashing, anxious, diaphoretic.) - HEENT HEENT: PERRL, EOMI, Moist mucous membranes - Cardiac Cardiac: RRR, No murmur - Respiratory Respiratory: No respiratory distress, Clear bilaterally - Abdomen Abdomen: Soft, Non tender - Derm Derm: Normal color - Neuro Neuro: Alert and oriented X 3, assembly line inspector 2-12 intact Eye Opening: Spontaneous Motor: Obeys Commands Verbal: Oriented GCS Score: 15 Results - Vitals Vitals: Vital Signs - 24 hr 09/19/17 09/19/17 09/20/17 22:23 23:18 00:22 Temperature 35.8 C L Heart Rate 82 82 95 Respiratory 24 20 16 Rate Blood Pressure 138/118 H 132/56 H 140/66 H O2 Saturation 100 98 98 09/20/17 02:02 Temperature 36.7 C Heart Rate 88 Respiratory 16 Rate Blood Pressure 106/75 O2 Saturation 99 Oxygen O2 Source Room air - Labs Labs: Laboratory Tests 09/19/17 09/19/17 09/19/17 22:31 22:52 23:07 WBC 10.2 RBC 4.81 Hgb 13.6 Hct 40.5 MCV 84.2 MCH 28.3 MCHC 33.7 RDW 13.7 Plt Count 307 MPV 9.0 Neut # (Auto) 7.2 H Lymph # (Auto) 2.1 [place] # (Auto) 0.5 Eos # (Auto) 0.4 Baso # (Auto) 0.1 Absolute Nucleated RBC 0.00 Nucleated RBC % 0.0 Sodium 140 Potassium 4.2 Chloride 106 Carbon Dioxide 28 Anion Gap 6.0 BUN 14 Creatinine 0.7 Estimated GFR (MDRD) 98 Glucose 115 H Calcium 9.0 Total Bilirubin 0.5 AST 22 ALT 15 Alkaline Phosphatase 53 Total Protein 6.7 Albumin 3.6 Globulin 3.1 Albumin/Globulin Ratio 1.2 Lipase 29 Urine Opiates Screen NEGATIVE Ur Oxycodone Screen NEGATIVE Urine Methadone Screen NEGATIVE Ur Propoxyphene Screen NEGATIVE Ur Barbiturates Screen NEGATIVE Ur Tricyclics Screen NEGATIVE Ur Phencyclidine Scrn NEGATIVE Ur Amphetamine Screen NEGATIVE U Methamphetamines Scrn NEGATIVE U Benzodiazepines Scrn NEGATIVE Urine Cocaine Screen NEGATIVE U Cannabinoids Screen NEGATIVE PD MEDICAL DECISION MAKING - ED course Complexity details: reviewed results, re-evaluated patient, considered differential, d/w patient, d/w family ED course: patients generalized appearance and recent naltrexone use would be c/w acute opiate withdrawal precipitated by naltrexone. she says the naltrexone was prescribed to treat the pain of her fibromyalgia and she says she has not taken any opiates for about two months. later in ED stay, she admits to using kratom as recently as yesterday. she does not answer when I ask how long or how frequently she has been using this. TEODORA form does not reveal concerning medication fill pattern, UDS is negative for tested substances. Visibly in distress on arrival, but gradually improved with titrated doses of IV ativan, small doses of dilaudid followed by PO percocet. she was in NAD at time of discharge, spouse was comfortable taking patient home. - Sepsis Event Vital Signs: Vital Signs - 24 hr 09/19/17 09/19/17 09/20/17 22:23 23:18 00:22 Temperature 35.8 C L Heart Rate 82 82 95 Respiratory 24 20 16 Rate Blood Pressure 138/118 H 132/56 H 140/66 H O2 Saturation 100 98 98 09/20/17 02:02 Temperature 36.7 C Heart Rate 88 Respiratory 16 Rate Blood Pressure 106/75 O2 Saturation 99 Oxygen O2 Source Room air Departure - Departure Disposition: 01 Home, Self Care Clinical Impression: Medication adverse effect Qualifiers: Encounter type: initial encounter Qualified Code(s): T50.905A - Adverse effect of unspecified drugs, medicaments and biological substances, initial encounter Condition: Good Instructions: ED Drug React Adverse Other Follow-Up: Evelyn Sun ARNP [Primary Care Provider] - Prescriptions: LORazepam [Lorazepam] 0.5 - 1 mg PO TID PRN #14 tablet PRN Reason: Anxiety oxyCODONE/ACET 5/325 [Percocet 5 mg/325 mg] 1 - 2 each PO Q6H PRN #10 tablet PRN Reason: Pain Comments: I suspect your symptoms were due to the naltrexone blocking the effects of the kratom. This would be more likely if you have been using kratom on a regular and recent basis. Do not take any more naltrexone, and contact your prescribing physician Friday to arrange follow-up appointment (to discuss options for alternative medications to naltrexone). It is possible that the symptoms were due to an interaction between naltrexone and your other medications, although this is very unlikely if the prescribing physician was aware of your current medication list. Discharge Date/Time: 09/20/17 02:03
[2017-09-19] MEDS ORDERED: LORazepam 2 MG/ML VIAL IVP STA (22:36)
[2017-09-19] MEDS ORDERED: SODIUM CHLORIDE 0.9% 1,000 ML IV STA (22:36)
[2017-09-19 22:49] LABS: BASOPHILS # (AUTO) 0.1 10^3/uL (0.0-0.1); BASOPHILS % (AUTO) 0.8 %; EOSINOPHILS # (AUTO) 0.4 10^3/uL (0.0-0.7); EOSINOPHILS % (AUTO) 3.8 %; HGB - HEMOGLOBIN 13.6 g/dL (12.0-16.0); LYMPHOCYTES # (AUTO) 2.1 10^3/uL (1.5-3.5); LYMPHOCYTES % (AUTO) 20.5 %; MEAN CORPUSCULAR HEMOGLOBIN 28.3 pg (27.0-31.0); MEAN CORPUSCULAR HGB CONC 33.7 g/dL (32.0-36.0); MEAN CORPUSCULAR VOLUME 84.2 fL (81.0-99.0); MONOCYTES # (AUTO) 0.5 10^3/uL (0.0-1.0); MONOCYTES % (AUTO) 4.6 %; NEUTROPHILS # (AUTO) 7.2 10^3/uL (1.5-6.6); NEUTROPHILS % (AUTO) 70.3 %; PLT - PLATELET COUNT 307 10^3/uL (130-450); RED BLOOD COUNT 4.81 10^6/uL (4.20-5.40); RED CELL DISTRIBUTION WIDTH 13.7 % (12.0-15.0); WHITE BLOOD COUNT 10.2 x10^3/uL (4.8-10.8)
[2017-09-19] MEDS ORDERED: HYDROmorphone 1 MG/ML CARPUJECT IVP STA (22:55)
[2017-09-19 23:08] LABS: ALBUMIN 3.6 g/dL (3.2-5.5); ALBUMIN/GLOBULIN RATIO 1.2 (1.0-2.2); BILIRUBIN,TOTAL 0.5 mg/dL (0.2-1.0); CREATININE 0.7 mg/dL (0.4-1.0); TOTAL PROTEIN 6.7 g/dL (6.7-8.2)
[2017-09-19 23:21] LABS: MUDS CUTOFF CONCENTRATIONS CUTOFF CONC BELOW:
[2017-09-19 23:47] LABS: AMPHETAMINE SCREEN,URINE NEGATIVE (NEGATIVE); BENZODIAZEPINES SCREEN, URINE NEGATIVE (NEGATIVE); COCAINE SCREEN URINE NEGATIVE (NEGATIVE); METHADONE SCREEN, URINE NEGATIVE (NEGATIVE); METHAMPHETAMINES SCREEN, URINE NEGATIVE (NEGATIVE); OPIATE SCREEN, URINE NEGATIVE (NEGATIVE); OXYCODONE SCREEN, URINE NEGATIVE (NEGATIVE); PROPOXYPHENE SCREEN, URINE NEGATIVE (NEGATIVE); TRICYCLIC ANTIDEPRESSANT,URINE NEGATIVE (NEGATIVE)
[2017-09-20] MEDS ORDERED: oxyCODONE 5 MG TABLET PO STA (00:11)
[2017-09-20] MEDS ORDERED: LORazepam 2 MG/ML VIAL IVP STA (00:12)
[2017-09-20] MEDS ORDERED: oxyCODONE/ACET 5/325 Prepack 4 PO STA (01:27)
[2017-09-20 02:03] VITALS: BP 106/75
== END 2017-09-20 02:03 | disposition home or self-care (01) ==
LOC: EDUNIT# → ED 22:22
DX: T50.7X5A Adverse effect of analeptics and opioid receptor antagonists, initial encounter (principal)
CPT/HCPCS: 36415; 80053; 80306; 83690; 85025; 96361; 96374; 96375; 96376; 99283; 99284; A9270; J1170; J2060

== ENCOUNTER 2017-10-06 16:44 | Outpatient (CLI) | payer MEDICAID | END 2017-10-06 16:45 | disposition home or self-care (01) | LOC: LAB.R 16:44 | PROVIDERS: ATTEND Nurse Practitioner Gerontology | DX: Z79.899 Other long term (current) drug therapy (principal) | CPT/HCPCS: 80306 ==

== ENCOUNTER 2017-12-01 18:40 | Emergency (ER) | payer MEDICAID ==
[2017-12-01 18:48] VITALS: BP 117/68
[2017-12-01] MEDS ORDERED: BUFFERED LIDOCAINE 10 ML SYRINGE SUBQ ONE (18:53)
[2017-12-01] MEDS ORDERED: SULFAMETH/TRIMETH DS 800/160 MG TABLET PO STA (18:53)
--- NOTE | 2017-12-01 18:55 | ED Physician Documentation ---
History of Present Illness - Stated complaint Stated Complaint: RASH - Chief complaint Chief Complaint: General - History obtained from History obtained from: Patient - History of Present Illness Timing: Other (About 4 days of increasing lesion on the right forehead that is painful and swollen without fevers or possibility of status post remote tubal ligation.) Review of Systems Constitutional: denies: Fever, Chills Respiratory: reports: Reviewed and negative GI: reports: Reviewed and negative PD PAST MEDICAL HISTORY - Past Medical History Cardiovascular: None Respiratory: None Endocrine/Autoimmune: None GI: None AIR POLLUTION INSPECTOR: None : None HEENT: None Psych: Depression, Anxiety Musculoskeletal: Fibromyalgia Derm: None - Past Surgical History Past Surgical History: Yes Ortho: Other /AIR POLLUTION INSPECTOR: Tubal ligation HEENT: Other - Present Medications Home Medications: Ambulatory Orders Medication Instructions Recorded Confirmed Bupropion HCl [Wellbutrin] 300 mg PO DAILY 07/12/13 11/20/16 Dextroamphetamine/Amphetamine 30 tab PO DAILY 11/20/16 11/20/16 [Adderall 30 mg Tablet] LORazepam [Lorazepam] 0.5 - 1 mg PO TID PRN #14 tablet 09/20/17 Hydrocodone/Acetaminophen 1 - 2 each PO Q6H PRN #7 tablet 12/01/17 [Hydrocodon-Acetaminophen 5-325] Sulfamethoxazole/Trimethoprim 1 each PO BID #14 tablet 12/01/17 [Sulfamethoxazole-Tmp Ds Tablet] - Allergies Allergies/Adverse Reactions: Allergies Allergy/AdvReac Type Severity Reaction Status Date / Time No Known Drug Allergies Allergy Verified 12/01/17 18:47 - Social History Does the pt smoke?: No Smoking Status: Never smoker Does the pt drink ETOH?: Yes Does the pt have substance abuse?: No - Immunizations Immunizations are current?: Yes - POLST Patient has POLST: No PD ED PE NORMAL - Vitals Vital signs reviewed: Yes - General General: Alert and oriented X 3, No acute distress - HEENT HEENT: PERRL, EOMI, Other (On the right forehead there is a pointed quarter sized abscess without much cellulitis or active drainage.) - Neck Neck: Supple, no meningeal sign, No bony TTP - Neuro Neuro: Alert and oriented X 3 - Psych Psych: Normal mood, Normal affect Results - Vitals Vitals: Vital Signs - 24 hr 12/01/17 18:46 Temperature 36.9 C Heart Rate 72 Respiratory 16 Rate Blood Pressure 117/68 O2 Saturation 99 Oxygen O2 Source Room air Procedures - Abscess I&D (location) forehead Preparation: Betadine, Lidocaine 1% Incision: Incised with scalpel, Purulent drainage, Loculations broken, Culture obtained. No: Packed Other: Pt tolerated well, Dressing applied, Antibiotic prescribed Departure - Departure Disposition: 01 Home, Self Care Clinical Impression: Facial abscess Condition: Good Record reviewed to determine appropriate education?: Yes Instructions: ED Abscess IandD Prescriptions: Hydrocodone/Acetaminophen [Hydrocodon-Acetaminophen 5-325] 1 - 2 each PO Q6H PRN #7 tablet PRN Reason: pain Sulfamethoxazole/Trimethoprim [Sulfamethoxazole-Tmp Ds Tablet] 1 each PO BID #14 tablet Comments: We are performing a wound culture, the results should be done in 48-72 hours. If antibiotic change is necessary we will call you. Return if worse in the meantime, especially if you develop increased pain, fevers, cannot keep down the medication. Otherwise follow-up with your physician in approximately 2-3 days.
== END 2017-12-01 19:27 | disposition home or self-care (01) ==
LOC: ED 18:40
DX: L02.01 Cutaneous abscess of face (principal)
CPT/HCPCS: 10060; 87070; 87181; 87205; 99283; A9270

== ENCOUNTER 2018-03-18 19:54 | Emergency (ER) | payer MEDICAID ==
--- NOTE | 2018-03-18 23:12 | ED Physician Documentation ---
PD HPI TRUNK INJURY - Stated complaint Stated Complaint: GLF/BODY PX - Chief complaint Chief Complaint: Trauma Ch/Bk - History obtained from History obtained from: Patient - History of Present Illness Location: Lower back (sacral and tailbone area. Also pain at right wrist and ankle as she fell.) Type of injury: Fall (slipped on ice and fell directly to buttock/tailbone area, ankle twisted as she slid starting the fall, and she did try to catch fall with right wrist.) Timing - onset: Today Timing - details: Abrupt onset Quality: Pain Worsened by: Moving (of wrist and ankle.), Palpating (tailbone and buttock area) Associated symtptoms: No: Weakness, Numbness Review of Systems Cardiac: denies: Chest pain / pressure GI: denies: Abdominal Pain Musculoskeletal: denies: Neck pain, Back pain Neurologic: reports: Numbness (she says middle fingers on right hand are numb since fall). denies: Focal weakness, Altered mental status, Headache, Head injury PD PAST MEDICAL HISTORY - Past Medical History Cardiovascular: None Respiratory: None Neuro: Other Endocrine/Autoimmune: None GI: None SENIOR C DEVELOPER: None : None HEENT: None Psych: Depression, Anxiety Musculoskeletal: Fibromyalgia Derm: None - Past Surgical History Past Surgical History: Yes Ortho: Other /SENIOR C DEVELOPER: Tubal ligation HEENT: Other - Present Medications Home Medications: Ambulatory Orders Medication Instructions Recorded Confirmed Bupropion HCl [Wellbutrin] 300 mg PO DAILY 07/12/13 11/20/16 Dextroamphetamine/Amphetamine 30 tab PO DAILY 11/20/16 11/20/16 [Adderall 30 mg Tablet] LORazepam [Lorazepam] 0.5 - 1 mg PO TID PRN #14 tablet 09/20/17 Hydrocodone/Acetaminophen 1 - 2 each PO Q6H PRN #7 tablet 12/01/17 [Hydrocodon-Acetaminophen 5-325] Sulfamethoxazole/Trimethoprim 1 each PO BID #14 tablet 12/01/17 [Sulfamethoxazole-Tmp Ds Tablet] Naproxen 500 mg PO BID #20 tablet 03/19/18 Oxycodone HCl/Acetaminophen 1 each PO Q6H PRN #14 tablet 03/19/18 [Percocet 5-325 mg Tablet] - Allergies Allergies/Adverse Reactions: Allergies Allergy/AdvReac Type Severity Reaction Status Date / Time No Known Drug Allergies Allergy Verified 03/18/18 20:41 - Social History Does the pt smoke?: No Smoking Status: Never smoker Does the pt drink ETOH?: Yes Does the pt have substance abuse?: No - Immunizations Immunizations are current?: Yes - POLST Patient has POLST: No PD ED PE NORMAL - Vitals Vital signs reviewed: Yes - General General: Alert and oriented X 3, Well developed/nourished - HEENT HEENT: Atraumatic - Neck Neck: Supple, no meningeal sign, No bony TTP, No adenopathy - Cardiac Cardiac: RRR, No murmur - Respiratory Respiratory: Clear bilaterally - Abdomen Abdomen: Soft, Non tender - Derm Derm: Normal color, Warm and dry - Extremities Extremities: Other (right wrist with good ROM but hurts. No swelling nor deformity. middle fingers with subjective decreased sensation. Normal color and cap refill. right ankle tender over ATFL area. Not tender at maleolus itself. ) - Neuro Neuro: Alert and oriented X 3, No motor deficit, No sensory deficit, Normal speech Eye Opening: Spontaneous Motor: Obeys Commands Verbal: Oriented GCS Score: 15 Results - Vitals Vitals: Vital Signs - 24 hr 03/18/18 03/19/18 22:25 00:50 Heart Rate 84 71 Respiratory 19 16 Rate Blood Pressure 124/83 H 121/76 O2 Saturation 99 100 Oxygen O2 Source Room air - Rads (name of study) wrist right Radiology: Prelim report reviewed (no fractures), See rad report right ankle Radiology: Prelim report reviewed (no fractures), See rad report pelvic CT Radiology: Prelim report reviewed (no fractures), See rad report PD MEDICAL DECISION MAKING - ED course Complexity details: considered differential (reasonably/ expected sore on buttock and tailbone area from the fall, and has sprain of wrist and ankle. Can get imaging to ensure no fractures. ), d/w patient Departure - Departure Disposition: 01 Home, Self Care Clinical Impression: Fall due to ice or snow Qualifiers: Encounter type: initial encounter Qualified Code(s): W00.9XXA - Unspecified fall due to ice and snow, initial encounter Right wrist sprain Qualifiers: Encounter type: initial encounter Qualified Code(s): S63.501A - Unspecified sprain of right wrist, initial encounter Ankle sprain Qualifiers: Encounter type: initial encounter Involved ligament of ankle: anterior talofibular ligament Laterality: right Qualified Code(s): S93.491A - Sprain of o ther ligament of right ankle, initial encounter Coccygeal contusion Qualifiers: Encounter type: initial encounter Qualified Code(s): S30.0XXA - Contusion of lower back and pelvis, initial encounter Condition: Stable Record reviewed to determine appropriate education?: Yes Instructions: ED Contusion Sacrum Coccyx, ED Sprain Wrist Follow-Up: Evelyn Sun ARNP [Primary Care Provider] - Prescriptions: Naproxen 500 mg PO BID #20 tablet Oxycodone HCl/Acetaminophen [Percocet 5-325 mg Tablet] 1 each PO Q6H PRN #14 tablet PRN Reason: pain Comments: No fracture seen on your scans and x-rays. You will still be sore at the wrist and ankle from the sprain of it. Reduce activity and use as able and needed. The pelvic CT scan did not show any obvious fractures either. Recheck if not improving over the next several days. Use an anti-inflammatory such as naproxen twice daily over the next week or so. Add Tylenol or pain medicine if needed. The soreness should be improve over the next few days as the contusion of it decreases. Discharge Date/Time: 03/19/18 01:00
[2018-03-18] MEDS: oxyCODONE 5 MG TABLET PO STA (23:35)
[2018-03-18] MEDS: NAPROXEN 250 MG TABLET PO STA (23:35)
--- NOTE | 2018-03-19 00:29 | XRAY Report ---
Reason: fall ice, wrist pain Procedure Date: 03/19/2018 Accession Number: [id number] / [id number] Procedure: XR - Wrist 4 View RT CPT Code: FULL RESULT: EXAM: RIGHT WRIST RADIOGRAPHY EXAM DATE: 03/19/2018 12:06 AM. CLINICAL HISTORY: Fall ice, wrist pain. COMPARISON: HAND 3 VIEW RT 09/29/2013 2:30 PM. TECHNIQUE: 4 views. FINDINGS: Bones: Normal. No fractures or bone lesions. Joints: Normal. No subluxations. Soft Tissues: Normal. No soft tissue swelling. IMPRESSION: Normal wrist radiography. RAD[facility]
--- NOTE | 2018-03-19 00:30 | XRAY Report ---
Reason: fall ice, twisted ankle Procedure Date: 03/19/2018 Accession Number: [id number] / [id number] Procedure: XR - Ankle 3 View RT CPT Code: FULL RESULT: EXAM: RIGHT ANKLE RADIOGRAPHY EXAM DATE: 03/19/2018 12:03 AM. CLINICAL HISTORY: Fall ice, twisted ankle. COMPARISON: None. TECHNIQUE: 3 views. FINDINGS: Bones: Normal. No fractures or bone lesions. Joints: Normal. No effusion. No subluxations. The ankle mortise is normally aligned. Soft Tissues: Normal. No soft tissue swelling. IMPRESSION: Normal ankle radiography. RADIA
--- NOTE | 2018-03-19 00:34 | CT Report ---
Reason: fall ice, tailbone pain Procedure Date: 03/19/2018 Accession Number: [id number] / [id number] Procedure: CT - Pelvis W/O CPT Code: FULL RESULT: EXAM: CT BONY PELVIS WITHOUT CONTRAST EXAM DATE: 03/19/2018 12:01 AM. CLINICAL HISTORY: Fall on ice, tailbone pain. COMPARISON: None. TECHNIQUE: Thin-section axial images were acquired of the pelvis without contrast. Post-processing: Coronal and sagittal reformats. Other: None. In accordance with CT protocol optimization, one or more of the following dose reduction techniques were utilized for this exam: automated exposure control, adjustment of mA and/or KV based on patient size, or use of iterative reconstructive technique. FINDINGS: Bones: No definite displaced fracture or suspicious bone lesion evident on this examination. There is no significant precoccygeal or presacral soft tissue swelling to indicate an occult fracture. Joints: No dislocation. No diastases of the sacroiliac joints or symphysis pubis. Soft Tissues: There is a small fat-containing umbilical hernia. Appendix is normal. Physiologic appearance of the uterus and ovaries within the confines of a noncontrast exam. No abnormal dilated bowel loops. No free fluid. No significant inguinal hernia. IMPRESSION: No acute abnormality demonstrated. RADIA
[2018-03-19 01:17] VITALS: BP 121/76
== END 2018-03-19 01:00 | disposition home or self-care (01) ==
LOC: ED 19:54
DX: S63.501A Unspecified sprain of right wrist, initial encounter (principal); S93.491A Sprain of other ligament of right ankle, initial encounter; S30.0XXA Contusion of lower back and pelvis, initial encounter; W00.0XXA Fall on same level due to ice and snow, initial encounter; X50.1XXA Overexertion from prolonged static or awkward postures, initial encounter
CPT/HCPCS: 72192; 99283

== ENCOUNTER 2018-04-07 14:03 | Outpatient (CLI) | payer MEDICAID ==
[2018-04-06 20:06] LABS: CREATININE 0.6 mg/dL (0.4-1.0)
== END 2018-04-07 23:59 | disposition home or self-care (01) ==
LOC: LAB.N 14:03
PROVIDERS: ATTEND Nurse Practitioner Gerontology
DX: Z79.899 Other long term (current) drug therapy (principal)
CPT/HCPCS: 36415; 80048

== ENCOUNTER 2019-01-29 19:41 | Emergency (ER) | payer MEDICAID ==
--- NOTE | 2019-01-29 20:13 | ED Physician Documentation ---
History of Present Illness - Stated complaint Stated Complaint: RT EAR PX/DRAINAGE - Chief complaint Chief Complaint: Heent - Additonal information Additional information: This is a 33 year old female who presents with continued pain in the right ear. She states she developed an ear infection with a ruptured eardrum that was treated with PO abx on Friday at [facility] then on Friday she saw her PCP and was prescribed ciprodex drops. Despite using these medications as directed she has had continued pain and drainage. She also states that occasionally when she turns her head she will have brief vertigo that self- resolves. None currently. No fever, confusion. Review of Systems Ears: reports: Ear pain, Drainage/discharge Respiratory: denies: Dyspnea Skin: denies: Rash PD PAST MEDICAL HISTORY - Past Medical History Cardiovascular: None Respiratory: None Neuro: Other Endocrine/Autoimmune: None GI: None FOUNDATION RELATIONS DIRECTOR: None : None HEENT: None Psych: Depression, Anxiety Musculoskeletal: Fibromyalgia Derm: None - Past Surgical History Past Surgical History: Yes Ortho: Other /FOUNDATION RELATIONS DIRECTOR: Tubal ligation HEENT: Other - Present Medications Home Medications: Ambulatory Orders Medication Instructions Recorded Confirmed Bupropion HCl [Wellbutrin] 300 mg PO DAILY 07/12/13 11/20/16 Dextroamphetamine/Amphetamine 30 tab PO DAILY 11/20/16 11/20/16 [Adderall 30 mg Tablet] LORazepam [Lorazepam] 0.5 - 1 mg PO TID PRN #14 tablet 09/20/17 Hydrocodone/Acetaminophen 1 - 2 each PO Q6H PRN #7 tablet 12/01/17 [Hydrocodon-Acetaminophen 5-325] Sulfamethoxazole/Trimethoprim 1 each PO BID #14 tablet 12/01/17 [Sulfamethoxazole-Tmp Ds Tablet] Naproxen 500 mg PO BID #20 tablet 03/19/18 Oxycodone HCl/Acetaminophen 1 each PO Q6H PRN #14 tablet 03/19/18 [Percocet 5-325 mg Tablet] Cefdinir 300 mg PO BID #14 capsule 01/29/19 Meclizine HCl 25 mg PO TID PRN #12 tab.chew 01/29/19 - Allergies Allergies/Adverse Reactions: Allergies Allergy/AdvReac Type Severity Reaction Status Date / Time amitriptyline Allergy Hallucinati Verified 01/29/19 19:45 ons - Social History Does the pt smoke?: No Smoking Status: Never smoker Does the pt drink ETOH?: Yes Does the pt have substance abuse?: No - Immunizations Immunizations are current?: Yes - POLST Patient has POLST: No PD ED PE NORMAL - General General: Alert and oriented X 3 - HEENT HEENT: Other (R tympanic membrane is erythematous and opaque, small amount of debris in the auditory canal. I do not see an obvious large rupture. Left TM normal in appearance. 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 She is non-toxic, has no signs of more serious/nefarious infection at this time - no mastoid tenderness, no skin changes around the ear, and her mental status and gross neuro exam are normal. Her brief and resolving episodes of vertigo are likely secondary to her otitis media and eardrum rupture. I broadened her oral abx to cefdinir and prescribed meclizine. I also discussed the controversy of ciprodex in TM rupture and possible association with slower healing of the TM. I recommended continued PCP follow up and reviewed return precautions, and patient was discharged home. I did send her with 4 tablets of percocet for pain after reviewing narcotic safety and side-effects. Departure - Departure Disposition: 01 Home, Self Care Clinical Impression: Otitis media Qualifiers: Otitis media type: suppurative Chronicity: acute Laterality: right Recurrence: not specified as recurrent Spontaneous tympanic membrane rupture: with spontaneous rupture Qualified Code(s): H66.011 - Acute suppurative otitis media with spontaneous rupture of ear drum, right ear Condition: Good Instructions: ED Otitis Media Acute Adult Follow-Up: Evelyn Sun [employer] [Primary Care Provider] - Prescriptions: Cefdinir 300 mg PO BID #14 capsule Meclizine HCl 25 mg PO TID PRN #12 tab.chew PRN Reason: Vertigo Comments: You have a middle ear infection, which has caused rupture of your eardrum. Please continue to use the antibiotic drops as prescribed. I am starting you on antibiotic called Cefdinir, please complete the entire course of this. You may also try the meclizine for any feelings of vertigo, and it may also help with some congestion. If you are having worsening such as fever despite the antibiotics, swelling of your face, confusion, return to the emergency department. Otherwise please follow-up with your primary care provider. Do not drink alcohol or drive while taking narcotic pain medication. Note that many narcotic pain relievers also contain Tylenol/acetaminophen. Please ensure that your total dose of acetaminophen from all sources does not exceed 3 g (3000 mg) per day. You may get constipated while on this medication. Take a stool softener such as Colace twice a day while you are on it. Also add an lygh-ply-sycoazl laxative such as senna or MiraLAX on any day that you do not have a bowel movement. If you received a narcotic pain medication or sedative while in the emergency department, do not drive for the next 24 hours. Discharge Date/Time: 01/29/19 21:06
[2019-01-29] MEDS ORDERED: cephALEXin 250 MG CAPSULE PO STA (20:37)
[2019-01-29] MEDS ORDERED: oxyCODONE/ACET 5/325 Prepack 4 PO STA (20:38)
[2019-01-29 21:06] VITALS: BP 149/96
== END 2019-01-29 21:06 | disposition home or self-care (01) ==
LOC: ED 19:41
DX: H66.011 Acute suppurative otitis media with spontaneous rupture of ear drum, right ear (principal); R42 Dizziness and giddiness
CPT/HCPCS: 99282; 99284; A9270

== ENCOUNTER 2019-03-02 17:52 | Emergency (ER) | payer MEDICAID ==
[2019-03-02] MEDS ORDERED: oxyCODONE 5 MG TABLET PO STA (19:57)
[2019-03-02] MEDS ORDERED: predniSONE 20 MG TABLET PO STA (19:57)
--- NOTE | 2019-03-02 20:00 | ED Physician Documentation ---
History of Present Illness - Stated complaint Stated Complaint: RT SHOULDER/NECK PX/HEADACHE - Chief complaint Chief Complaint: Ext Problem - History obtained from History obtained from: Patient - History of Present Illness Timing: Other (She had a long day a few days ago building a dresser, she developed gradual onset pain in the right neck radiating towards the right arm with numbness in the right hand. There was no specific injury.) Review of Systems Constitutional: reports: Reviewed and negative Nose: reports: Reviewed and negative Throat: reports: Reviewed and negative Cardiac: reports: Reviewed and negative PD PAST MEDICAL HISTORY - Past Medical History Past Medical History: Yes Cardiovascular: None Respiratory: None Neuro: Other Endocrine/Autoimmune: None GI: None SUPERVISOR OF OFFICIALS: None : None HEENT: None Psych: Depression, Anxiety Musculoskeletal: Fibromyalgia Derm: None - Past Surgical History Past Surgical History: Yes Ortho: Other /SUPERVISOR OF OFFICIALS: Tubal ligation HEENT: Other - Present Medications Home Medications: Ambulatory Orders Medication Instructions Recorded Confirmed Bupropion HCl [Wellbutrin] 300 mg PO DAILY 07/12/13 11/20/16 Dextroamphetamine/Amphetamine 30 tab PO DAILY 11/20/16 11/20/16 [Adderall 30 mg Tablet] LORazepam [Lorazepam] 0.5 - 1 mg PO TID PRN #14 tablet 09/20/17 Hydrocodone/Acetaminophen 1 - 2 each PO Q6H PRN #7 tablet 12/01/17 [Hydrocodon-Acetaminophen 5-325] Sulfamethoxazole/Trimethoprim 1 each PO BID #14 tablet 12/01/17 [Sulfamethoxazole-Tmp Ds Tablet] Naproxen 500 mg PO BID #20 tablet 03/19/18 Oxycodone HCl/Acetaminophen 1 each PO Q6H PRN #14 tablet 03/19/18 [Percocet 5-325 mg Tablet] Cefdinir 300 mg PO BID #14 capsule 01/29/19 Meclizine HCl 25 mg PO TID PRN #12 tab.chew 01/29/19 Oxycodone HCl/Acetaminophen 1 - 2 each PO Q6H PRN #10 tablet 03/02/19 [Percocet 5-325 mg Tablet] predniSONE [Deltasone] 20 mg PO [id number] #21 tab 03/02/19 - Allergies Allergies/Adverse Reactions: Allergies Allergy/AdvReac Type Severity Reaction Status Date / Time amitriptyline Allergy Hallucinati Verified 01/29/19 19:45 ons - Social History Does the pt smoke?: No Smoking Status: Never smoker Does the pt drink ETOH?: Yes Does the pt have substance abuse?: No - Immunizations Immunizations are current?: Yes - POLST Patient has POLST: No PD ED PE NORMAL - Vitals Vital signs reviewed: Yes - General General: Alert and oriented X 3, No acute distress - Neck Neck: Other (Mild tenderness of the low cervical spine without limited range of motion.) - Extremities Extremities: Other (Mild decrease sensation in a C8 distribution on the right and weakness in wrist extension, but estate planning counselor strength, interosseous, thumb extension, and wrist flexion are equal and symmetric bilaterally.) - Neuro Neuro: Alert and oriented X 3, Normal speech Results - Vitals Vitals: Vital Signs - 24 hr 03/02/19 03/02/19 18:08 19:22 Temperature 36 C L Heart Rate 77 Respiratory 18 16 Rate Blood Pressure 145/94 H O2 Saturation 99 Oxygen O2 Source Room air PD MEDICAL DECISION MAKING - ED course ED course: 33-year-old woman with symptoms and signs consistent with an acute cervical radiculopathy for which she is medicated in follow-up and potential physical therapy and advanced imaging if not improving was advised. Mechanism is not consistent with cervical spine fracture. Departure - Departure Disposition: 01 Home, Self Care Clinical Impression: Cervical radiculopathy Condition: Good Record reviewed to determine appropriate education?: Yes Instructions: ED Cervical Radiculopathy Prescriptions: Oxycodone HCl/Acetaminophen [Percocet 5-325 mg Tablet] 1 - 2 each PO Q6H PRN #10 tablet PRN Reason: pain predniSONE [Deltasone] 20 mg PO [id number] #21 tab Comments: Follow-up with your doctor, discuss physical therapy. Return for new or worsening symptoms.
[2019-03-02] MEDS ORDERED: MORPHINE 10 MG/ML VIAL IVP STA (20:07)
[2019-03-02] MEDS ORDERED: D5.45NS W/20 MEQ KCL 1,000 ML IV STA (20:07)
[2019-03-02] MEDS ORDERED: THIAMINE INJ 100 MG in SODIUM CHLORIDE 0.9% 50 ML IV STA (20:07)
[2019-03-02 20:10] VITALS: BP 135/84
== END 2019-03-02 20:21 | disposition home or self-care (01) ==
LOC: ED 17:52
DX: M54.12 Radiculopathy, cervical region (principal)
CPT/HCPCS: 99282; 99283; A9270; J7512

== ENCOUNTER 2019-04-18 15:45 | Emergency (ER) | payer MEDICAID ==
[2019-04-18 15:53] VITALS: BP 133/81
[2019-04-18] MEDS ORDERED: PROPARACAINE 0.5% OPHTH DROPS 15 ML EACHEYE STA (15:56)
--- NOTE | 2019-04-18 16:08 | ED Physician Documentation ---
PD HPI OPHTHO - Stated complaint Stated Complaint: RT EYE PX/SWOLLEN - Chief complaint Chief Complaint: Heent - History obtained from History obtained from: Patient - History of Present Illness Timing - onset: Other (She was breaking up concrete at home with a sledgehammer yesterday and feels like she got a piece in her eye. Her vision is not affected she just had a lot of green drainage. It is itchy and painful. No fevers. No URI symptoms. 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: Tubal ligation HEENT: Other - Present Medications Home Medications: Ambulatory Orders Medication Instructions Recorded Confirmed Bupropion HCl [Wellbutrin] 300 mg PO DAILY 07/12/13 11/20/16 Dextroamphetamine/Amphetamine 30 tab PO DAILY 11/20/16 11/20/16 [Adderall 30 mg Tablet] LORazepam [Lorazepam] 0.5 - 1 mg PO TID PRN #14 tablet 09/20/17 Hydrocodone/Acetaminophen 1 - 2 each PO Q6H PRN #7 tablet 12/01/17 [Hydrocodon-Acetaminophen 5-325] Sulfamethoxazole/Trimethoprim 1 each PO BID #14 tablet 12/01/17 [Sulfamethoxazole-Tmp Ds Tablet] Naproxen 500 mg PO BID #20 tablet 03/19/18 Oxycodone HCl/Acetaminophen 1 each PO Q6H PRN #14 tablet 03/19/18 [Percocet 5-325 mg Tablet] Cefdinir 300 mg PO BID #14 capsule 01/29/19 Meclizine HCl 25 mg PO TID PRN #12 tab.chew 01/29/19 Oxycodone HCl/Acetaminophen 1 - 2 each PO Q6H PRN #10 tablet 03/02/19 [Percocet 5-325 mg Tablet] predniSONE [Deltasone] 20 mg PO [id number] #21 tab 03/02/19 Erythromycin Base [Erythromycin 1 appful OP 5XD 7 Days #1 oint...g. 04/18/19 Ophthalmic Ointment] Ketorolac 0.45% Ophth Drops 1 each OPTH Q6H PRN #1 bottle 04/18/19 [Acuvail] - Allergies Allergies/Adverse Reactions: Allergies Allergy/AdvReac Type Severity Reaction Status Date / Time amitriptyline Allergy Hallucinati Verified 04/18/19 15:53 ons - Social History Does the pt smoke?: No Smoking Status: Never smoker Does the pt drink ETOH?: Yes Does the pt have substance abuse?: No - Immunizations Immunizations are current?: Yes - POLST Patient has POLST: No PD ED PE NORMAL - Vitals Vital signs reviewed: Yes - General General: Alert and oriented X 3, No acute distress - HEENT HEENT: Other (She has conjunctivitis of the right eye with some purulent drainage. No periorbital edema. There is no fluorescein uptake, that said out of an abundance of caution the eyes were irrigated with saline after the proparacaine. She was pain-free after proparacaine.) - Neck Neck: Supple, no meningeal sign, No bony TTP - Neuro Neuro: Alert and oriented X 3, Normal speech Results - Vitals Vitals: Vital Signs - 24 hr 04/18/19 15:49 Temperature 36.7 C Heart Rate 105 H Respiratory 18 Rate Blood Pressure 133/81 H O2 Saturation 100 Oxygen O2 Source Room air Departure - Departure Disposition: 01 Home, Self Care Clinical Impression: Right conjunctivitis Qualifiers: Conjunctivitis type: acute Acute conjunctivitis type: bacterial Qualified Code(s): H10.31 - Unspecified acute conjunctivitis, right eye Condition: Good Record reviewed to determine appropriate education?: Yes Instructions: ED Conjunctivitis Nonspecific Prescriptions: Erythromycin Base [Erythromycin Ophthalmic Ointment] 1 appful OP 5XD 7 Days #1 oint...g. Ketorolac 0.45% Ophth Drops [Acuvail] 1 each OPTH Q6H PRN #1 bottle PRN Reason: eye pain Comments: Return if worse or if not better in 24 to 36 hours.
== END 2019-04-18 16:14 | disposition home or self-care (01) ==
LOC: ED 15:45
DX: H10.31 Unspecified acute conjunctivitis, right eye (principal)
CPT/HCPCS: 99282; 99283; J3490

== ENCOUNTER 2019-04-19 21:20 | Emergency (ER) | payer MEDICAID ==
[2019-04-19 21:31] VITALS: BP 135/78
--- NOTE | 2019-04-19 21:39 | ED Physician Documentation ---
History of Present Illness - Stated complaint Stated Complaint: RT EYE PX - Chief complaint Chief Complaint: Heent - Additonal information Additional information: This is a 33-year-old female who returns the emergency department with right eye irritation. Patient states a 48 hours ago a piece of cement hit her eye and she had some diffuse discomfort as well as a foreign body sensation, she was seen in the emergency department and had a fairly unremarkable exam showing conjunctivitis without signs of an obvious abrasion or laceration, she was started on erythromycin and ketorolac drops. She states that the ketorolac drops make her eye burn, erythromycin has been helping, but she has a continued feeling of some grittiness in her eye and she has now had copious drainage from the right eye. She states her vision is fairly normal, she has some blurriness associated with the drainage, but this resolves when the drainage is wiped away with a warm cloth. Review of Systems Constitutional: denies: Fever Eyes: reports: Irritation. 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 : None HEENT: None Psych: Depression, Anxiety Musculoskeletal: Fibromyalgia Derm: None - Past Surgical History Past Surgical History: Yes Ortho: Other /WORKERS' COMPENSATION COMMISSIONER: Tubal ligation HEENT: Other - Present Medications Home Medications: Ambulatory Orders Medication Instructions Recorded Confirmed Bupropion HCl [Wellbutrin] 300 mg PO DAILY 07/12/13 11/20/16 Dextroamphetamine/Amphetamine 30 tab PO DAILY 11/20/16 11/20/16 [Adderall 30 mg Tablet] LORazepam [Lorazepam] 0.5 - 1 mg PO TID PRN #14 tablet 09/20/17 Hydrocodone/Acetaminophen 1 - 2 each PO Q6H PRN #7 tablet 12/01/17 [Hydrocodon-Acetaminophen 5-325] Sulfamethoxazole/Trimethoprim 1 each PO BID #14 tablet 12/01/17 [Sulfamethoxazole-Tmp Ds Tablet] Naproxen 500 mg PO BID #20 tablet 03/19/18 Oxycodone HCl/Acetaminophen 1 each PO Q6H PRN #14 tablet 03/19/18 [Percocet 5-325 mg Tablet] Cefdinir 300 mg PO BID #14 capsule 01/29/19 Meclizine HCl 25 mg PO TID PRN #12 tab.chew 01/29/19 Oxycodone HCl/Acetaminophen 1 - 2 each PO Q6H PRN #10 tablet 03/02/19 [Percocet 5-325 mg Tablet] predniSONE [Deltasone] 20 mg PO [id number] #21 tab 03/02/19 Erythromycin Base [Erythromycin 1 appful OP 5XD 7 Days #1 oint...g. 04/18/19 Ophthalmic Ointment] Ketorolac 0.45% Ophth Drops 1 each OPTH Q6H PRN #1 bottle 04/18/19 [Acuvail] Polymyxin B/Trimeth Ophth Drop 1 drops RIGHTEYE Q3H 5 Days #1 04/19/19 [Polytrim Ophth Drops] bottle - Allergies Allergies/Adverse Reactions: Allergies Allergy/AdvReac Type Severity Reaction Status Date / Time amitriptyline Allergy Hallucinati Verified 04/18/19 15:53 ons - Social History Does the pt smoke?: No Smoking Status: Never smoker Does the pt drink ETOH?: Yes Does the pt have substance abuse?: No - Immunizations Immunizations are current?: Yes - POLST Patient has POLST: No PD ED PE NORMAL - Vitals Vital signs reviewed: Yes - General General: Alert and oriented X 3, No acute distress - HEENT HEENT: Other (Right eye has conjunctival injection. On fluorescein staining there is diffuse mild uptake along the inferior conjunctiva but no focal abrasion, no laceration, negative Jamal sign. Extraocular movements are intact. Pressure with Zeferino-Pen measurement is 14. Visual acuity is normal to reading text.) - Neck Neck: Supple, no meningeal sign - Cardiac Cardiac: Strong equal pulses - Respiratory Respiratory: No respiratory distress - Derm Derm: Warm and dry - Neuro Neuro: Alert and oriented X 3 - Psych Psych: Normal mood, Normal affect Results - Vitals Vitals: Vital Signs - 24 hr 04/19/19 21:29 Temperature 36.7 C Heart Rate 95 Respiratory 16 Rate Blood Pressure 135/78 H O2 Saturation 99 Oxygen O2 Source Room air PD MEDICAL DECISION MAKING - ED course Complexity details: considered differential (Conjunctivitis, abrasion, glaucoma, globe rupture) ED course: When proparacaine drops are instilled the patient's eyes her pain completely resolves, suggestive that she has conjunctival or corneal irritation. Her intraocular pressure is normal making glaucoma extremely unlikely, she has no visual field cuts or signs of retinal detachment. She does have some diffuse uptake in the inferior aspect of her eye and from her history to the copious Drainage does raise my concern for bacterial conjunctivitis. She appears to be an appropriate treatment, and is only been on therapy for less than 24 hours, I recommended continued use of the erythromycin and and I also prescribed her polymyxin drops to add tomorrow if she is not having improvement. She does not wear contact lenses, does not appear to need fluoroquinolone coverage at this time. I did provide her with a small amount of the proparacaine which she could use tonight once more if needed to help her get some rest, she understands that continued use of this drop could lead to decreased cranial healing or other complications, I reviewed these risks in depth with her, she agrees and will only use the drops sparingly tonight if needed. I reviewed return precautions and follow-up instructions with the patient, and she will return to the emergenc y department if she has any vision changes Or other new concerning symptoms. Departure - Departure Disposition: 01 Home, Self Care Clinical Impression: Bacterial conjunctivitis of right eye Condition: Good Instructions: ED Conjunctivitis Bacterial Follow-Up: Evelyn Sun ARNP [Primary Care Provider] - Within 1 week (If having any persistent symptoms) Prescriptions: Polymyxin B/Trimeth Ophth Drop [Polytrim Ophth Drops] 1 drops RIGHTEYE Q3H 5 Days #1 bottle Comments: You appear to have a bacterial conjunctivitis, please continue using the erythromycin ointment which you were prescribed, and if you are not having improvement tomorrow start the new antibiotic drops in addition to the erythromycin ointment. If you are having worsening vision, increasing eye pain, or any other concerning symptoms return to the emergency department. Discharge Date/Time: 04/19/19 22:09
== END 2019-04-19 22:09 | disposition home or self-care (01) ==
LOC: ED 21:20
DX: H10.89 Other conjunctivitis (principal)
CPT/HCPCS: 99282; 99284

== ENCOUNTER 2019-06-14 14:40 | Outpatient (CLI) | payer MEDICAID ==
[2019-06-14 15:18] LABS: ALBUMIN 3.9 g/dL (3.2-5.5); ALBUMIN/GLOBULIN RATIO 1.2 (1.0-2.2); BILIRUBIN,TOTAL 0.8 mg/dL (0.2-1.0); CALCIUM 8.4 mg/dL (8.5-10.3); CREATININE 0.7 mg/dL (0.4-1.0); TOTAL PROTEIN 7.1 g/dL (6.7-8.2)
[2019-06-14 15:36] LABS: THYROID STIMULATING HORMONE 0.93 uIU/mL (0.34-5.60)
[2019-06-14 15:37] LABS: FREE T3 3.34 pg/mL (2.5-3.9)
[2019-06-14 15:38] LABS: FREE T4 (FREE THYROXINE) 0.98 ng/dL (0.58-1.64)
== END 2019-06-14 14:41 | disposition home or self-care (01) ==
LOC: LAB 14:40
PROVIDERS: ATTEND Nurse Practitioner
DX: R94.4 Abnormal results of kidney function studies (principal); R63.5 Abnormal weight gain
CPT/HCPCS: 36415; 80053; 84439; 84443; 84481

== ENCOUNTER 2020-02-14 19:50 | Emergency (ER) | payer MEDICAID ==
[2020-02-14] MEDS ORDERED: HYDROcod/ACETAM 5/325 MG TABLET PO STA (20:40)
[2020-02-14] MEDS ORDERED: HYDROcod/ACET 5/325 Prepack 4 PO STA (20:41)
--- NOTE | 2020-02-14 20:41 | ED Physician Documentation ---
PD HPI UPPER EXT INJURY - Stated complaint Stated Complaint: R SHOULDER PX - Chief complaint Chief Complaint: Ext Problem - History obtained from History obtained from: Patient - Additonal information Additional information: Right-handed woman was raking and doing heavy yard work 3 days ago at home has had progressive pain across the top of the right shoulder since and posteriorly. No fevers. No history of trouble with that shoulder. 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 : None HEENT: None Psych: Depression, Anxiety Musculoskeletal: Fibromyalgia Derm: None - Past Surgical History Past Surgical History: Yes Ortho: Other /HAND CEMENTER: Tubal ligation HEENT: Other - Present Medications Home Medications: Ambulatory Orders Medication Instructions Recorded Confirmed Bupropion HCl [Wellbutrin] 300 mg PO DAILY 07/12/13 02/14/20 Dextroamphetamine/Amphetamine 30 tab PO DAILY 11/20/16 02/14/20 [Adderall 30 mg Tablet] HYDROcod/ACETAM 5/325 [[place] 5/325] 1 - 2 tab PO Q6H PRN #10 tablet 02/14/20 - Allergies Allergies/Adverse Reactions: Allergies Allergy/AdvReac Type Severity Reaction Status Date / Time amitriptyline Allergy Hallucinati Verified 02/14/20 20:01 ons - Social History Does the pt smoke?: No Smoking Status: Never smoker Does the pt drink ETOH?: Yes Does the pt have substance abuse?: No - Immunizations Immunizations are current?: Yes - POLST Patient has POLST: No PD ED PE NORMAL - Vitals Vital signs reviewed: Yes - General General: Alert and oriented X 3, No acute distress - Extremities Extremities: Other (Kind of diffuse muscular tenderness of the shoulder, nothing focal or pinpoint. No deformity. She is able to abduct to over 90 degrees, but with abduction and external rotation she has increased pain. At her side internal and external rotation are relatively painless.) - Neuro Neuro: Alert and oriented X 3, Normal speech - Psych Psych: Normal mood, Normal affect Results - Vitals Vitals: Vital Signs - 24 hr 02/14/20 02/14/20 20:02 21:07 Temperature 36.5 C 37.2 C Heart Rate 100 92 Respiratory 16 16 Rate Blood Pressure 131/89 H 129/83 H O2 Saturation 99 99 Oxygen O2 Source Room air - Rads (name of study) R shoulder XR Radiology: EMP read contemporaneously (NAD) Departure - Departure Disposition: 01 Home, Self Care Clinical Impression: Right shoulder strain Qualifiers: Encounter type: initial encounter Qualified Code(s): S46.911A - Strain of unspecified muscle, fascia and tendon at shoulder and upper arm level, right arm, initial encounter Condition: Good Record reviewed to determine appropriate education?: Yes Instructions: ED Sprain Shoulder Prescriptions: HYDROcod/ACETAM 5/325 [[place] 5/325] 1 - 2 tab PO Q6H PRN #10 tablet PRN Reason: Pain Comments: Do not wear the sling for more than 2 days, gentle stretching and heat. Ibuprofen in addition to the prescription pain medication. Return if worsening or new symptoms develop. Follow-up with your doctor in a week if not better for consideration for referral for physical therapy. Discharge Date/Time: 02/14/20 21:08
[2020-02-14 21:08] VITALS: BP 129/83
--- NOTE | 2020-02-14 21:21 | XRAY Report ---
PROCEDURE: Shoulder 3 View RT INDICATIONS: shoulder inj TECHNIQUE: 3 views of the shoulder were acquired. COMPARISON: None. FINDINGS: Bones: No fractures or dislocations. No suspicious bony lesions. Visualized ribs appear intact. Soft tissues: No suspicious soft tissue calcifications. IMPRESSION: 1. No fracture or dislocation. Reviewed by: Harry Cummings MD on 02/14/2020 9:19 PM PST Approved by: Harry Cummings MD on 02/14/2020 9:19 PM [facility] Station ID: [id number]
== END 2020-02-14 21:08 | disposition home or self-care (01) ==
LOC: ED 19:50
DX: S46.911A Strain of unspecified muscle, fascia and tendon at shoulder and upper arm level, right arm, initial encounter (principal); X50.0XXA Overexertion from strenuous movement or load, initial encounter; Y93.H2 Activity, gardening and landscaping; Y92.007 Garden or yard of unspecified non-institutional (private) residence as the place of occurrence of the external cause
CPT/HCPCS: 73030; 99283; A9270

== ENCOUNTER 2020-03-18 23:59 | Outpatient (CLI) | payer MEDICAID | END 2020-03-19 | disposition EMS.NT | LOC: EMS 23:59 | DX: R51.9 Headache, unspecified (principal); M54.5 Low back pain; R10.32 Left lower quadrant pain ==

== ENCOUNTER 2020-03-19 14:35 | Emergency (ER) | payer OTHER, MEDICAID ==
[2020-03-19 14:50] VITALS: BP 133/101
[2020-03-19] MEDS ORDERED: MELOXICAM 7.5 MG TABLET PO STA (15:02)
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
== END 2020-03-19 16:01 | disposition home or self-care (01) ==
LOC: ED 14:35
DX: S09.90XA Unspecified injury of head, initial encounter (principal); S20.212A Contusion of left front wall of thorax, initial encounter; Y04.2XXA Assault by strike against or bumped into by another person, initial encounter; Z87.891 Personal history of nicotine dependence
CPT/HCPCS: 70450; 70486; 99284; A9270

== ENCOUNTER 2020-05-24 14:01 | Outpatient (CLI) | payer MEDICAID ==
[2020-05-25 12:16] LABS: HEPATITIS C ANTIBODY NON-REACTIVE (NON-REACTIVE)
[2020-05-25 12:36] LABS: HIV AG/AB 4TH GEN NON-REACTIVE (NON-REACTIVE)
== END 2020-05-24 23:59 | disposition home or self-care (01) ==
LOC: LAB.WCP 14:01
PROVIDERS: ATTEND Family Medicine
DX: Z11.3 Encounter for screening for infections with a predominantly sexual mode of transmission (principal)
CPT/HCPCS: 36415; 86592; 86803; 87389

== ENCOUNTER 2022-01-02 21:15 | Emergency (ER) | payer MEDICAID ==
[2022-01-02 21:28] VITALS: BP 126/97
[2022-01-02] MEDS ORDERED: HYDROcod/ACET 5/325 Prepack 4 PO STA (21:44)
[2022-01-02] MEDS ORDERED: AMOX/CLAV 875 MG/125 MG TABLET PO STA (21:45)
--- NOTE | 2022-01-02 21:48 | ED Physician Documentation ---
PD BOCANEGRA HEENT - Stated complaint Stated Complaint: FACIAL PX - Chief complaint Chief Complaint: Heent - History obtained from History obtained from: Patient - Additional information Additional information: Patient is a 36-year-old female presenting for evaluation of pain and swellingNear the right mandible that has been present for since earlier today. She reports that pain radiates up and down the face. She denies fevers. She has a history ofSalivary gland stones as well as recurrent swelling in this area and has followed up with ENT in the past at the [facility]. She was told that she has stones that are too far back for them to reach.She has not been seen by ENT in several years. She denies sore throat, congestion, difficulty breathing, difficulty swallowing. She has tried Tylenol and ibuprofen today without any improvement. 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 : None HEENT: None Psych: Depression, Anxiety Musculoskeletal: Fibromyalgia Derm: None - Past Surgical History Past Surgical History: Yes Ortho: Other /BRAKES INSPECTOR: Tubal ligation HEENT: Other - Present Medications Home Medications: Ambulatory Orders Medication Instructions Recorded Confirmed Bupropion HCl [Wellbutrin] 300 mg PO DAILY 07/12/13 02/14/20 Dextroamphetamine/Amphetamine 30 tab PO DAILY 11/20/16 02/14/20 [Adderall 30 mg Tablet] HYDROcod/ACETAM 5/325 [[place] 5/325] 1 - 2 tab PO Q6H PRN #10 tablet 02/14/20 Ibuprofen [Motrin] 800 mg PO Q8H PRN #30 tab 03/19/20 Amox/Clav 875/125 [Augmentin] 1 each PO Q12H #20 tablet 01/02/22 HYDROcod/ACETAM 5/325 [[place] 5/325] 1 tablet PO Q6H PRN #10 tablet 01/02/22 - Allergies Allergies/Adverse Reactions: Allergies Allergy/AdvReac Type Severity Reaction Status Date / Time amitriptyline Allergy Hallucinati Verified 01/02/22 21:28 ons - Social History Does the pt smoke?: No Smoking Status: Former smoker Does the pt drink ETOH?: Yes Does the pt have substance abuse?: No - Immunizations Immunizations are current?: Yes - POLST Patient has POLST: No PD ED PE NORMAL - General General: Alert and oriented X 3, No acute distress, Well developed/nourished - HEENT HEENT: Atraumatic, Moist mucous membranes, Pharynx benign (No oral swelling, erythema or exudate, normal phonation), Dentition benign, Other (No trismus) - Neck Neck: Other (Tender 1 to 2 cm lymph node near the angle of the mandible on the right,No overlying erythemaNo lymphadenopathy palpated elsewhere or on the left) - Cardiac Cardiac: RRR, Strong equal pulses - Respiratory Respiratory: No respiratory distress, Clear bilaterally - Derm Derm: Warm and dry - Extremities Extremities: No edema - Neuro Neuro: Normal speech Results - Vitals Vitals: Vital Signs - 24 hr 01/02/22 21:25 Temperature 36.7 C Heart Rate 80 Respiratory 18 Rate Blood Pressure 126/97 H O2 Saturation 99 Oxygen O2 Source Room air PD MEDICAL DECISION MAKING - ED course ED course: Patient with tender cervical lymph node on the right. No oral swelling or signs of abscess or deep space infection. No signs of airway compromise.Has a history of recurrent pain and swelling in this area. Plan for antibiotics and small amount of pain medication. Patient was counseled on strict return precautions as well as need for follow-up. Departure - Departure Disposition: 01 Home, Self Care Clinical Impression: Cervical adenitis Condition: Stable Instructions: ED Cervical Adenitis Abx Tx Prescriptions: Amox/Clav 875/125 [Augmentin] 1 each PO Q12H #20 tablet HYDROcod/ACETAM 5/325 [[place] 5/325] 1 tablet PO Q6H PRN #10 tablet PRN Reason: Pain Comments: You have inflammation of lymph nodes to the right neck. I started you on antibiotic Is a suspect there may be an underlying infection. Also sent pain medication. I have sent these prescriptions to [facility] in [place] As this is the only pharmacy that is open tomorrow morning On . I am prescribing a short course of narcotic pain medication for you. These are potentially dangerous and addictive medications that should be used carefully. These medications may constipate you. Take an [id number] stool softener (docusate) twice daily with plenty of water while taking these medications. If you go 24 hours without a bowel movement, take [id number] miralax, per package instructions. Do not drink or drive while taking these medications. If you received narcotic or sedating medications while in the emergency department, do not drive for 24 hours. Store this medication in a safe, secure place and out of reach of children. It is a violation of federal law to give or sell this medication to another person or to use in a manner other than prescribed. The ED will not refill narcotic prescriptions, including prescriptions lost or stolen. To dispose of unwanted medications: 1. [facility] at [address] in [place] has a medication drop box. They accept prescription medications (in pill form) Friday through Friday 9:00 a.m. to 5:00 p.m. 2. The [facility] accepts prescription medications (in pill form only) for disposal year round. Call for more information. 3. Contact the [facility] for the next [facility] sponsored prescription drug collection event. , [phone], or [phone]; Note that many narcotic pain relievers also contain Tylenol/acetaminophen. Please ensure that your total dose of acetaminophen from all sources does not exceed 3 g (3000 mg) per day. Discharge Date/Time: 01/02/22 21:58
== END 2022-01-02 21:58 | disposition home or self-care (01) ==
LOC: ED 21:15
DX: I88.9 Nonspecific lymphadenitis, unspecified (principal); Z87.891 Personal history of nicotine dependence
CPT/HCPCS: 99282; 99283; A9270

== ENCOUNTER 2022-01-30 18:59 | Emergency (ER) | payer MEDICAID ==
[2022-01-30 19:30] VITALS: BP 152/93
[2022-01-30] MEDS ORDERED: HYDROcod/ACET 5/325 Prepack 4 PO STA (20:21)
[2022-01-30] MEDS ORDERED: CYCLOBENZAPRINE 10 MG Prepack 2 PO STA (20:21)
--- NOTE | 2022-01-30 20:33 | ED Physician Documentation ---
PD HPI BACK PAIN - Stated complaint Stated Complaint: BACK PX,SOA - Chief complaint Chief Complaint: Back Pain - History obtained from History obtained from: Patient - History of Present Illness Timing - onset: Enter time (15:15), Today Timing - details: Abrupt onset Pain level now: 8 Location: Lower, Right Quality: Pain, Spasm Associated symptoms: No: Weakness, Numbness, Incontinent of urine, Incontinent of stool Improves with: Rest Worsened by: Movement Contributing factors: Lifting Similar symptoms before: Has not had sx before Recently seen: Not recently seen - Additional information Additional information: history from patient. Patient c/o right lower back pain, sudden onset at approximately 3:15 PM today when she was lifting a bundle of wood. The pain has been constant since onset, distinctly worse with movement with some worsening with deep inspiration. Denies h/o similar symptoms. Pain does not radiate Review of Systems : denies: Incontinent, Now EGA Musculoskeletal: reports: Back pain. 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 : None HEENT: None Psych: Depression, Anxiety Musculoskeletal: Fibromyalgia Derm: None - Past Surgical History Past Surgical History: Yes Ortho: Other /LIP OF SHANK CUTTER: Tubal ligation HEENT: Other - Present Medications Home Medications: Ambulatory Orders Medication Instructions Recorded Confirmed Bupropion HCl [Wellbutrin] 300 mg PO DAILY 07/12/13 02/14/20 Dextroamphetamine/Amphetamine 30 tab PO DAILY 11/20/16 02/14/20 [Adderall 30 mg Tablet] HYDROcod/ACETAM 5/325 [[place] 5/325] 1 - 2 tab PO Q6H PRN #10 tablet 02/14/20 Ibuprofen [Motrin] 800 mg PO Q8H PRN #30 tab 03/19/20 Amox/Clav 875/125 [Augmentin] 1 each PO Q12H #20 tablet 01/02/22 HYDROcod/ACETAM 5/325 [[place] 5/325] 1 tablet PO Q6H PRN #10 tablet 01/02/22 Cyclobenzaprine [Flexeril] 10 mg PO TID PRN #20 tablet 01/30/22 HYDROcod/ACETAM 5/325 [[place] 5/325] 1 - 2 tablet PO Q6H PRN #14 tablet 01/30/22 - Allergies Allergies/Adverse Reactions: Allergies Allergy/AdvReac Type Severity Reaction Status Date / Time amitriptyline Allergy Hallucinati Verified 01/30/22 19:30 ons - Social History Does the pt smoke?: No Smoking Status: Former smoker Does the pt drink ETOH?: Yes Does the pt have substance abuse?: No - Immunizations Immunizations are current?: Yes - POLST Patient has POLST: No PD ED PE NORMAL - Vitals Vital signs reviewed: Yes - General General: Alert and oriented X 3, Well developed/nourished, Other (appears to be uncomfortable at times during H+P, particularly with movement involving lower back) - Respiratory Respiratory: No respiratory distress, Clear bilaterally - Back Back: No spinal TTP, Other (Mild right paralumbar tenderness to palpation ) - Neuro Neuro: No motor deficit (5/5 right foot dorsi/plantar flexion) Results - Vitals Vitals: Vital Signs - 24 hr 01/30/22 19:26 Temperature 36.2 C L Heart Rate 76 Respiratory 18 Rate Blood Pressure 152/93 H O2 Saturation 99 Oxygen O2 Source Room air PD Medical Decision Making - ED course Complexity details: considered differential, d/w patient ED course: Presents with right lower back pain of sudden onset earlier this afternoon when she was picking up a heavy bundle of wood. Mild tenderness on exam as noted above. No elements of history nor physical exam that indicate emergent testing. Prescriptions for Vicodin and Flexeril are electronically submitted to her pharmacy of choice, with take-home packs for both of these medications given to patient prior to discharge. Return precautions discussed. I am prescribing a short course of short-acting opioid pain medication for this patient. I have reviewed the patients HEADEND TECHNICIAN and no concerning findings were noted. I have discussed that the opioids are for short term therapy only, and will not be refilled from the ED. Departure - Departure Disposition: 01 Home, Self Care Clinical Impression: Lumbar strain Qualifiers: Encounter type: initial encounter Qualified Code(s): S39.012A - Strain of muscle, fascia and tendon of lower back, initial encounter Condition: Good Instructions: ED Sprain Strain Lumbar Follow-Up: Marbella Garcia ARNP [Primary Care Provider] - (7-10 days if symptoms have not resolved) Prescriptions: Cyclobenzaprine [Flexeril] 10 mg PO TID PRN #20 tablet PRN Reason: Spasms HYDROcod/ACETAM 5/325 [[place] 5/325] 1 - 2 tablet PO Q6H PRN #14 tablet PRN Reason: Pain Comments: Prescriptions for hydrocodone/acetaminophen (vicodin, narcotic pain medication) and cyclobenzaprine (flexeril, muscle relaxant) have been electronically submitted to [facility] pharmacy in [place]. I am prescribing a short course of narcotic pain medication for you. These are potentially dangerous and addictive medications that should be used carefully. These medications may constipate you. Take an uuhk-tov-jzeylmq stool softener (docusate) twice daily with plenty of water while taking these medications. If you go 24 hours without a bowel movement, take bbta-zie-xogrjus miralax, per package instructions. Do not drink or drive while taking these medications. If you received narcotic or sedating medications while in the emergency department, do not drive for 24 hours. Store this medication in a safe, secure place and out of reach of children. It is a violation of federal law to give or sell this medication to another person or to use in a manner other than prescribed. The ED will not refill narcotic prescriptions, including prescriptions lost or stolen. To dispose of unwanted medications: 1. [facility] at [address] in [place] has a medication drop box. They accept prescription medications (in pill form) Friday through Friday 9:00 a.m. to 5:00 p.m. 2. The [facility] [employer] Department accepts prescription medications (in pill form only) for disposal year round. Call for more information. 3. Contact the [facility] for the next [facility] sponsored prescription drug collection event. , [id number], or [id number]; Discharge Date/Time: 01/30/22 20:42
[2022-01-30] MEDS ORDERED: BACITRACIN ZINC OINT 1 PACKET TOP STA (20:42)
== END 2022-01-30 20:42 | disposition home or self-care (01) ==
LOC: ED 18:59
DX: S39.012A Strain of muscle, fascia and tendon of lower back, initial encounter (principal); X50.0XXA Overexertion from strenuous movement or load, initial encounter; Y93.89 Activity, other specified; Y92.79 Other farm location as the place of occurrence of the external cause; Z87.891 Personal history of nicotine dependence
CPT/HCPCS: 99282

== ENCOUNTER 2022-04-11 08:50 | Outpatient (CLI) | payer MEDICAID ==
[2022-04-11 12:17] LABS: BASOPHILS # (AUTO) 0.1 10^3/uL (0.0-0.1); BASOPHILS % (AUTO) 0.7 %; EOSINOPHILS # (AUTO) 0.2 10^3/uL (0.0-0.7); EOSINOPHILS % (AUTO) 2.4 %; HGB - HEMOGLOBIN 12.6 g/dL (12.0-16.0); LYMPHOCYTES # (AUTO) 2.7 10^3/uL (1.5-3.5); MEAN CORPUSCULAR HEMOGLOBIN 27.8 pg (27.0-31.0); MEAN CORPUSCULAR HGB CONC 31.5 g/dL (32.0-36.0); MEAN CORPUSCULAR VOLUME 88.3 fL (81.0-99.0); MEAN PLATELET VOLUME 10.7 fL (7.9-10.8); MONOCYTES # (AUTO) 0.6 10^3/uL (0.0-1.0); NEUTROPHILS # (AUTO) 4.8 10^3/uL (1.5-6.6); NEUTROPHILS % (AUTO) 57.7 %; PLT - PLATELET COUNT 351 10^3/uL (130-450); RED BLOOD COUNT 4.53 10^6/uL (4.20-5.40); RED CELL DISTRIBUTION WIDTH 12.7 % (12.0-15.0); WHITE BLOOD COUNT 8.3 x10^3/uL (4.8-10.8)
[2022-04-11 12:40] LABS: ALBUMIN 3.7 g/dL (3.2-5.5); ALBUMIN/GLOBULIN RATIO 0.9 (1.0-2.2); ALKALINE PHOSPHATASE 54 IU/L (42-121); ALT ALANINE AMINOTRANSFERASE 21 IU/L (10-60); AST ASPARTATE AMINOTRANSFERASE 22 IU/L (10-42); BILIRUBIN,TOTAL 0.4 mg/dL (0.2-1.0); BUN - BLOOD UREA NITROGEN 12 mg/dL (6-20); CALCIUM 9.5 mg/dL (8.5-10.3); CARBON DIOXIDE - CO2 27 mmol/L (21-32); CHLORIDE 108 mmol/L (101-111); CHOL/HDL RATIO 2.7 (<4.4); CHOLESTEROL 206 mg/dL; CREATININE 0.7 mg/dL (0.4-1.0); GFR - MDRD 95 (>89); GLUCOSE 94 mg/dL (70-100); HDL CHOLESTEROL 75 mg/dL; LDL CHOLESTEROL,CALCULATED 112 mg/dL; LDL/HDL RATIO 1.5 (<4.4); POTASSIUM 4.7 mmol/L (3.5-5.0); SODIUM 141 mmol/L (135-145); TOTAL PROTEIN 7.6 g/dL (6.7-8.2); TRIGLYCERIDES 95 mg/dL; VLDL CHOLESTEROL 19 mg/dL
[2022-04-11 12:42] LABS: THYROID STIMULATING HORMONE 2.23 uIU/mL (0.34-5.60)
== END 2022-04-11 08:51 | disposition home or self-care (01) ==
LOC: LAB.N 08:50
PROVIDERS: ATTEND Nurse Practitioner
DX: R59.1 Generalized enlarged lymph nodes (principal); Z51.81 Encounter for therapeutic drug level monitoring; Z13.220 Encounter for screening for lipoid disorders; F32.A Depression, unspecified
CPT/HCPCS: 36415; 80053; 80061; 83721; 84443; 85025

== ENCOUNTER 2022-09-30 23:39 | Emergency (ER) | payer MEDICAID ==
[2022-10-01 00:32] LABS: BASOPHILS % (AUTO) 0.4 %; EOSINOPHILS # (AUTO) 0.2 10^3/uL (0.0-0.7); EOSINOPHILS % (AUTO) 1.8 %; HCT - HEMATOCRIT 38.9 % (37.0-47.0); HGB - HEMOGLOBIN 12.6 g/dL (12.0-16.0); LYMPHOCYTES # (AUTO) 2.9 10^3/uL (1.5-3.5); LYMPHOCYTES % (AUTO) 30.4 %; MEAN CORPUSCULAR HEMOGLOBIN 29.4 pg (27.0-31.0); MEAN CORPUSCULAR HGB CONC 32.4 g/dL (32.0-36.0); MEAN CORPUSCULAR VOLUME 90.9 fL (81.0-99.0); MEAN PLATELET VOLUME 10.4 fL (7.9-10.8); MONOCYTES # (AUTO) 0.5 10^3/uL (0.0-1.0); MONOCYTES % (AUTO) 5.4 %; NEUTROPHILS % (AUTO) 61.8 %; PLT - PLATELET COUNT 335 10^3/uL (130-450); RED BLOOD COUNT 4.28 10^6/uL (4.20-5.40); RED CELL DISTRIBUTION WIDTH 12.6 % (12.0-15.0); WHITE BLOOD COUNT 9.6 x10^3/uL (4.8-10.8)
[2022-10-01 00:57] LABS: ALBUMIN/GLOBULIN RATIO 1.3 (1.0-2.2); BILIRUBIN,TOTAL 0.3 mg/dL (0.2-1.0); CALCIUM 9.6 mg/dL (8.5-10.3); CREATININE 0.8 mg/dL (0.6-1.3); POTASSIUM 3.7 mmol/L (3.5-4.5); TOTAL PROTEIN 7.1 g/dL (6.4-8.9)
[2022-10-01 01:02] LABS: BILIRUBIN,URINE NEGATIVE (NEGATIVE); GLUCOSE, URINE (UA) NEGATIVE (NEGATIVE); KETONES,URINE (UA) NEGATIVE (NEGATIVE); LEUKOCYTE ESTERASE, URINE NEGATIVE (NEGATIVE); NITRITE,URINE NEGATIVE (NEGATIVE); OCCULT BLOOD,URINE NEGATIVE (NEGATIVE); PROTEIN,URINE NEGATIVE (NEGATIVE); UROBILINOGEN,URINE 0.2 (NORMAL) E.U./dL (NORMAL)
[2022-10-01 01:03] LABS: CLARITY,URINE HAZY (CLEAR); HCG UR QUAL NEGATIVE
[2022-10-01 01:10] LABS: AMORPHOUS SEDIMENT,UR Few /LPF; BACTERIA,URINE Rare /HPF (None Seen); RBC,URINE 0-5 /HPF (0-5); SQUAMOUS EPITHELIAL CELL,UR RARE Squamous (<= Few); WBC,URINE 0-3 /HPF (0-5)
--- NOTE | 2022-10-01 01:48 | ED Physician Documentation ---
PD HPI ABD PAIN - Stated complaint Stated Complaint: ABD PX,BACK PX - Chief complaint Chief Complaint: Abd Pain - History obtained from History obtained from: Patient - Additional information Additional information: HPI from patient. Patient c/o abdominal pain, across lower abdomen and radiating around to back bilaterally. Onset few days ago without inciting event, gradual onset but steadily worsening since onset. Exacerbated with movement, palpation (of abdomen and anterior pelvis). She has had nausea but no vomiting. Review of Systems Constitutional: reports: Reviewed and negative Cardiac: reports: Reviewed and negative Respiratory: reports: Reviewed and negative GI: reports: Abdominal Pain, Nausea. 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 : None HEENT: None Psych: Depression, Anxiety Musculoskeletal: Fibromyalgia Derm: None - Past Surgical History Past Surgical History: Yes Ortho: Other /TINWARE LITHOGRAPH PRESS OPERATOR: Tubal ligation HEENT: Other - Present Medications Home Medications: Ambulatory Orders Medication Instructions Recorded Confirmed Bupropion HCl [Wellbutrin] 300 mg PO DAILY 07/12/13 02/14/20 Dextroamphetamine/Amphetamine 30 tab PO DAILY 11/20/16 02/14/20 [Adderall 30 mg Tablet] HYDROcod/ACETAM 5/325 [[place] 5/325] 1 - 2 tab PO Q6H PRN #10 tablet 02/14/20 Ibuprofen [Motrin] 800 mg PO Q8H PRN #30 tab 03/19/20 Amox/Clav 875/125 [Augmentin] 1 each PO Q12H #20 tablet 01/02/22 HYDROcod/ACETAM 5/325 [[place] 5/325] 1 tablet PO Q6H PRN #10 tablet 01/02/22 Cyclobenzaprine [Flexeril] 10 mg PO TID PRN #20 tablet 01/30/22 HYDROcod/ACETAM 5/325 [[place] 5/325] 1 - 2 tablet PO Q6H PRN #14 tablet 01/30/22 HYDROcod/ACETAM 5/325 [[place] 5/325] 1 - 2 tablet PO Q6H PRN #14 tablet 08/22/23 Ondansetron Odt [Zofran Odt] 4 mg TL Q6H PRN #14 tablet 10/01/22 - Allergies Allergies/Adverse Reactions: Allergies Allergy/AdvReac Type Severity Reaction Status Date / Time amitriptyline Allergy Hallucinati Verified 09/30/22 23:43 ons - Social History Does the pt smoke?: No Smoking Status: Former smoker Does the pt drink ETOH?: Yes Does the pt have substance abuse?: No - Immunizations Immunizations are current?: Yes - POLST Patient has POLST: No PD ED PE NORMAL - Vitals Vital signs reviewed: Yes - General General: Alert and oriented X 3, No acute distress, Well developed/nourished - Cardiac Cardiac: RRR, No murmur - Respiratory Respiratory: No respiratory distress, Clear bilaterally - Abdomen Abdomen: Soft, Non distended, Other (mild TTP periumbilicus and across lower abdomen without rebound or guarding) Results - Vitals Vitals: Oxygen O2 Source Room air - Labs Labs: Laboratory Tests 10/01/22 10/01/22 10/01/22 00:25 00:25 00:49 WBC 9.6 RBC 4.28 Hgb 12.6 Hct 38.9 MCV 90.9 MCH 29.4 MCHC 32.4 RDW 12.6 Plt Count 335 MPV 10.4 Neut # (Auto) 6.0 Lymph # (Auto) 2.9 [place] # (Auto) 0.5 Eos # (Auto) 0.2 Baso # (Auto) 0.0 Absolute Nucleated RBC 0.00 Nucleated RBC % 0.0 Sodium 138 Potassium 3.7 Chloride 105 Carbon Dioxide 27 Anion Gap 6.0 BUN 9 Creatinine 0.8 Estimated GFR (MDRD) 81 L Glucose 86 Calcium 9.6 Total Bilirubin 0.3 AST 36 ALT 40 Alkaline Phosphatase 68 Total Protein 7.1 Albumin 4.0 Globulin 3.1 Albumin/Globulin Ratio 1.3 Lipase 31 Urine Color YELLOW Urine Clarity HAZY Urine pH 7.0 Ur Specific [place] 1.020 Urine Protein NEGATIVE Urine Glucose (UA) NEGATIVE Urine Ketones NEGATIVE Urine Occult Blood NEGATIVE Urine Nitrite NEGATIVE Urine Bilirubin NEGATIVE Urine Urobilinogen 0.2 (NORMAL) Ur Leukocyte Esterase NEGATIVE Urine RBC 0-5 Urine WBC 0-3 Ur Squamous Epith Cells RARE Squamous Amorphous Sediment Few Urine Bacteria Rare Ur Microscopic Review INDICATED Urine Culture Comments NOT INDICATED Urine HCG, Qual 10/01/22 00:49 WBC RBC Hgb Hct MCV MCH MCHC RDW Plt Count MPV Neut # (Auto) Lymph # (Auto) [place] # (Auto) Eos # (Auto) Baso # (Auto) Absolute Nucleated RBC Nucleated RBC % Sodium Potassium Chloride Carbon Dioxide Anion Gap BUN Creatinine Estimated GFR (MDRD) Glucose Calcium Total Bilirubin AST ALT Alkaline Phosphatase Total Protein Albumin Globulin Albumin/Globulin Ratio Lipase Urine Color Urine Clarity Urine pH Ur Specific [place] Urine Protein Urine Glucose (UA) Urine Ketones Urine Occult Blood Urine Nitrite Urine Bilirubin Urine Urobilinogen Ur Leukocyte Esterase Urine RBC Urine WBC Ur Squamous Epith Cells Amorphous Sediment Urine Bacteria Ur Microscopic Review Urine Culture Comments Urine HCG, Qual NEGATIVE - Rads (name of study) CT A/P with IV contrast Relevant Findings:: Prelim report reviewed, See rad report PD Medical Decision Making - ED course Complexity details: reviewed results, re-evaluated patient, considered differential, d/w patient ED course: Patient reported adequate relief of pain with IV ketorolac. She eventually had relief of her nausea with zofran IV 4mg but needed repeated doses to obtain adequate symptom control. Tests ordered and results reviewed by me: CBC , ER abdominal panel, UA, UHCG, CT A/P with IV contrast. Normal results on CBC, ER abdominal panel, UA, and negative UHCG. On CT A/P, radiologist notes left adnexal varicosities such as can be seen with pelvic congestion syndrome. I reviewed test results with patient including the CT findings. I explained that the varicosities are certainly a possible cause of her symptoms, if not at least a contributing factor. I explained that such a diagnosis is not one that can be made in the ED and she needs to meet with a ring making machine operator for reevaluation of her symptoms and this finding on CT to discuss whether it is felt this is causing/contributing to symptoms, and what options for treatment are available. Return precautions discussed. Prescriptions for vicodin and zofran are e-prescribed to patients pharmacy of choice. I reviewed patients TEODORA form and did not find any prescription fills nor patterns of fills that would suggest/indicate misuse of controlled dangerous substances. Departure - Departure Disposition: 01 Home, Self Care Clinical Impression: Pelvic pain in female Condition: Good Instructions: ED Pelvic Pain [facility] Follow-Up: Bernadine Morrissey DO [Provider Admit Priv/Credential] - Prescriptions: HYDROcod/ACETAM 5/325 [[place] 5/325] 1 - 2 tablet PO Q6H PRN #14 tablet PRN Reason: Pain Ondansetron Odt [Zofran Odt] 4 mg TL Q6H PRN #14 tablet PRN Reason: Nausea / Vomiting Comments: There were no concerning or diagnostic findings on your blood tests, urinalysis. As we discussed, the only notable finding on the CT scan of your abdomen/pelvis is swelling of the veins in the left pelvis (varicosities). It is unclear if this is causing, or contributing to, your pain. The radiologist's reading of the CT scan indicates that this finding can be associated with pelvic congestion syndrome. There are no specific diagnostic criteria to establish the diagnosis of pelvic congestion syndrome. Further evaluation for this finding would best be undertaken by an appropriate specialist (ring making machine operator). If you do not already have a ring making machine operator, you can contact your primary care provider and/or your insurance carrier to inquire about the referral process. I am providing the name and office/contact information for the non destructive testing supervisor correctional nurse for [facility] within these discharge sheets. You can call and ask if they can see you for a follow-up appointment. I have electronically submitted prescriptions for ondansetron (antinausea medication) and Vicodin (narcotic/opiate pain medication) to the [facility] in [place]. I am prescribing a short course of narcotic pain medication for you. These are potentially dangerous and addictive medications that should be used carefully. These medications may constipate you. Take an eadp-mez-kwefaof stool softener (docusate) twice daily with plenty of water while taking these medications. If you go 24 hours without a bowel movement, take xobe-bzf-rynslpo miralax, per package instructions. Do not drink or drive while taking these medications. If you received narcotic or sedating medications while in the emergency department, do not drive for 24 hours. Store this medication in a safe, secure place and out of reach of children. It is a violation of federal law to give or sell this medication to another person or to use in a manner other than prescribed. The ED will not refill narcotic prescriptions, including prescriptions lost or stolen. To dispose of unwanted medications: 1. [facility] at [address] in [place] has a medication drop box. They accept prescription medications (in pill form) Friday through Friday 9:00 a.m. to 5:00 p.m. 2. The [facility] [employer] Department accepts prescription medications (in pill form only) for disposal year round. Call for more information. 3. Contact the [facility] for the next [facility] sponsored prescription drug collection event. , [id number], or [id number]; Forms: PCP List Discharge Date/Time: 10/01/22 07:00
[2022-10-01] MEDS ORDERED: ONDANSETRON 4 MG/2 ML VIAL IVP STA ×2 (01:59→04:25)
[2022-10-01] MEDS ORDERED: KETOROLAC 30 MG/ML VIAL IVP STA (01:59)
[2022-10-01] MEDS ORDERED: ONDANSETRON ODT 4 MG Prepack 2 TL PRN (06:32)
[2022-10-01] MEDS ORDERED: oxyCODONE/ACET 5/325 Prepack 4 PO STA (06:33)
[2022-10-01 06:52] VITALS: BP 143/99; O2SAT 100
[2022-10-01] MEDS ORDERED: iohexoL-300 100 ML VIAL IVP ONE (07:17)
--- NOTE | 2022-10-01 07:21 | CT Report ---
PROCEDURE: ABDOMEN/PELVIS W INDICATIONS: abdominal pain, greatest in LLQ CONTRAST: Omni 300 100ml TECHNIQUE: After the administration of weight appropriate dose of intravenous contrast, 5 mm thick sections acqu ired from the diaphragms to the symphysis. 5 mm thick coronal and sagittal reformats were acquired. For radiation dose reduction, the following was used: automated exposure control, adjustment of mA and/or kV according to patient size. COMPARISON: 07/07/2012 FINDINGS: Image quality: Excellent. Lung bases and heart: Unremarkable. Liver: Hepatic steatosis. Gallbladder and biliary tree: No radiopaque stones or wall thickening. No biliary dilation. Spleen: No splenomegaly. Pancreas: No pancreatic ductal dilation. Adrenals: No adrenal nodule. Kidneys and ureters: No hydronephrosis. No renal cystic lesion which requires follow up. No solid mas s. Bowel and peritoneum: No bowel distension. No pathologic free fluid. Normal appendix Lymph nodes: No central or retroperitoneal adenopathy. Vessels: No infrarenal aortic aneurysm. PELVIS Reproductive organs: Unremarkable CT appearance of the uterus and bilateral ovaries/adnexa. Prominent left adnexal varicosities. Bladder: No abnormal wall thickening, accounting for underdistension. Pelvic lymph nodes: No pelvic adenopathy by size criteria. Bones: No aggressive osseous abnormality. No acute compression fracture. Other: No significant ventral or inguinal hernia. Small fat-containing umbilical hernia without acute inflammation. IMPRESSION: CT abdomen and pelvis without acute abnormalities. Prominent left adnexal varicosities. Findings may be associated with pelvic congestion syndrome. Yvan mmend clinical correlation. Normal appendix. Findings are concordant with preliminary interpretation provided by [facility]. Reviewed by: Bin Briones MD on 10/01/2022 7:20 AM PDT Approved by: Bin Briones MD on 10/01/2022 7:20 AM PDT Station ID: [id number]
== END 2022-10-01 07:00 | disposition home or self-care (01) ==
LOC: ED 23:39
DX: R10.2 Pelvic and perineal pain (principal); Z79.899 Other long term (current) drug therapy; Z87.891 Personal history of nicotine dependence
CPT/HCPCS: 36415; 74177; 80053; 81001; 81025; 83690; 85025; 96374; 96375; 99284; Q9967; 81003; 87086

== ENCOUNTER 2022-10-24 12:45 | Outpatient (CLI) | payer MEDICAID ==
[2022-10-24 21:35] LABS: CHLAMYDIA TRACHOMATIS DNA NEGATIVE (NEGATIVE); NEISSERIA GONORRHOEAE DNA NEGATIVE (NEGATIVE); TRICHOMONAS VAGINALIS DNA NEGATIVE (NEGATIVE)
[2022-10-25 03:10] LABS: HIV SCREEN 4TH GENERATION Non Reactive (Non Reactive)
[2022-10-25 06:12] LABS: RPR Non Reactive (Non Reactive)
== END 2022-10-24 12:46 | disposition home or self-care (01) ==
LOC: LAB.N 12:45
PROVIDERS: ATTEND Nurse Practitioner
DX: Z20.2 Contact with and (suspected) exposure to infections with a predominantly sexual mode of transmission (principal)
CPT/HCPCS: 36415; 86592; 86695; 86696; 87389; 87491; 87591; 87661

== ENCOUNTER 2023-04-07 13:45 | Outpatient (CLI) | payer MEDICAID ==
[~2023-04-07 13:45] MED LIST: DIATRIZOATE MEGLU/DIATRIZO SOD 30 ML BOTTLE PO ONE
[2023-04-07] MEDS ORDERED: iohexoL-300 100 ML VIAL ONE (14:20)
[2023-04-07] MEDS ORDERED: DIATRIZOATE MEGLU/DIATRIZO SOD 30 ML BOTTLE PO ONE (14:20)
[2023-04-07 14:45] LABS: BASOPHILS % (AUTO) 0.6 %; EOSINOPHILS # (AUTO) 0.3 10^3/uL (0.0-0.7); EOSINOPHILS % (AUTO) 4.8 %; HCT - HEMATOCRIT 39.8 % (37.0-47.0); HGB - HEMOGLOBIN 12.5 g/dL (12.0-16.0); LYMPHOCYTES # (AUTO) 1.9 10^3/uL (1.5-3.5); LYMPHOCYTES % (AUTO) 29.2 %; MEAN CORPUSCULAR HEMOGLOBIN 28.3 pg (27.0-31.0); MEAN CORPUSCULAR HGB CONC 31.4 g/dL (32.0-36.0); MEAN CORPUSCULAR VOLUME 90.2 fL (81.0-99.0); MEAN PLATELET VOLUME 10.4 fL (7.9-10.8); MONOCYTES # (AUTO) 0.4 10^3/uL (0.0-1.0); MONOCYTES % (AUTO) 5.7 %; NEUTROPHILS % (AUTO) 59.5 %; PLT - PLATELET COUNT 259 10^3/uL (130-450); RED BLOOD COUNT 4.41 10^6/uL (4.20-5.40); RED CELL DISTRIBUTION WIDTH 12.6 % (12.0-15.0); WHITE BLOOD COUNT 6.6 x10^3/uL (4.8-10.8)
[2023-04-07 15:10] LABS: BILIRUBIN,URINE NEGATIVE (NEGATIVE); GLUCOSE, URINE (UA) NEGATIVE (NEGATIVE); KETONES,URINE (UA) NEGATIVE (NEGATIVE); LEUKOCYTE ESTERASE, URINE NEGATIVE (NEGATIVE); NITRITE,URINE NEGATIVE (NEGATIVE); OCCULT BLOOD,URINE NEGATIVE (NEGATIVE); PH,URINE 7.5 PH (5.0-7.5); PROTEIN,URINE NEGATIVE (NEGATIVE); UROBILINOGEN,URINE 0.2 (NORMAL) E.U./dL (NORMAL)
[2023-04-07 15:11] LABS: CLARITY,URINE CLEAR (CLEAR)
[2023-04-07] MEDS: DIATRIZOATE MEGLU/DIATRIZO SOD 30 ML BOTTLE PO ONE (15:24)
[2023-04-07] MEDS: iohexoL-300 100 ML VIAL IVP ONE (15:24)
[2023-04-07 15:28] LABS: ALBUMIN 3.9 g/dL (3.2-5.5); ALBUMIN/GLOBULIN RATIO 1.3 (1.0-2.2); BILIRUBIN,TOTAL 0.3 mg/dL (0.2-1.0); CALCIUM 9.3 mg/dL (8.5-10.3); CREATININE 0.6 mg/dL (0.6-1.3); POTASSIUM 3.8 mmol/L (3.5-4.5); TOTAL PROTEIN 6.9 g/dL (6.4-8.9)
[2023-04-07 15:53] LABS: RBC,URINE None Seen /HPF (0-5); WBC,URINE 0-3 /HPF (0-5)
[2023-04-07 15:54] LABS: BACTERIA,URINE None Seen /HPF (None Seen); SQUAMOUS EPITHELIAL CELL,UR FEW Squamous (<= Few)
--- NOTE | 2023-04-07 16:57 | CT Report ---
PROCEDURE: Abdomen/Pelvis W INDICATIONS: ABD PAIN CONTRAST: Omni 300 100ml TECHNIQUE: After the administration of intravenous contrast, a CT scan of the abdomen and pelvis was performed. Images were recorded and evaluated at appropriate window settings. Reformats: coronal and sagittal. F or radiation dose reduction, the following was used: automated exposure control, adjustment of mA and /or kV according to patient size. COMPARISON: 10/01/2022. FINDINGS: Image quality: Diagnostic. Lower chest: Unremarkable. Liver: No solid mass. Minimal focal fatty infiltration along the falciform ligament. Gallbladder and biliary tree: No radiopaque stones or wall thickening. No biliary dilation. Spleen: No splenomegaly. Pancreas: No pancreatic ductal dilation. Adrenals: No adrenal nodule. Kidneys and ureters: No hydronephrosis. No renal cystic lesion which requires follow up. No solid mas s. Stomach, bowel and peritoneum: No bowel distension. No pathologic free fluid. Normal appendix. Lymph nodes: No central or retroperitoneal adenopathy. Vessels: No infrarenal aortic aneurysm. PELVIS Reproductive organs: Unremarkable. Previously seen prominent left adnexal vessels are not appreciated on today's exam. Bladder: No abnormal wall thickening, accounting for underdistention. Pelvic lymph nodes: No pelvic adenopathy by size criteria. Bones: No aggressive osseous abnormality. Other: No significant ventral or inguinal hernia. Fat-containing umbilical hernia without acute infla mmation. IMPRESSION: CT abdomen and pelvis without acute abnormalities to explain patient's symptoms. Normal appendix. Reviewed by: Bin Briones MD on 04/07/2023 4:56 PM PST Approved by: Bin Briones MD on 04/07/2023 4:56 PM PST Station ID: [id number]
== END 2023-04-07 13:46 | disposition home or self-care (01) ==
LOC: DI 13:45
PROVIDERS: ATTEND Nurse Practitioner
DX: R10.33 Periumbilical pain (principal); N94.89 Other specified conditions associated with female genital organs and menstrual cycle
CPT/HCPCS: 36415; 74177; 80053; 81001; 82150; 83690; 85025; 87086; Q9963; Q9967

== ENCOUNTER 2023-05-10 17:31 | Emergency (ER) | payer MEDICAID ==
[2023-05-10 18:06] VITALS: BP 136/77; O2SAT 100
[2023-05-10] MEDS: KETOROLAC 30 MG/ML VIAL IM STA (18:47)
--- NOTE | 2023-05-10 18:57 | ED Physician Documentation ---
History of Present Illness - Stated complaint Stated Complaint: R SHOULDER INJ - Chief complaint Chief Complaint: Trauma Ext - History obtained from History obtained from: Patient - History of Present Illness Timing: How many days ago (2) Pain level max: 7 Pain level now: 7 - Additonal information Additional information: Patient is a 37-year-old female who presents to the emergency department with right shoulder pain. Ongoing for the past 2 days. Does not recall any specific injury, but states it did start after moving heavy feed bags. She states that she has a history of a right shoulder injury in the past. No numbness or tingling. Worse with movement, better with rest. Took Motrin this morning wi thout relief. She drove herself to the emergency department. No head, neck, back pain. Patient is not , breast-feeding or trying to become . Review of Systems Constitutional: denies: Fever, Chills GI: denies: Vomiting, Diarrhea : denies: Now EGA Skin: denies: Rash Musculoskeletal: denies: Neck pain, Back pain Neurologic: denies: Headache PD PAST MEDICAL HISTORY - Past Medical History Cardiovascular: None Respiratory: None Neuro: Other Endocrine/Autoimmune: None GI: None GAME MANAGER: None : None HEENT: None Psych: Depression, Anxiety Musculoskeletal: Fibromyalgia Derm: None - Past Surgical History Past Surgical History: Yes Ortho: Other /GAME MANAGER: Tubal ligation HEENT: Other - Present Medications Home Medications: Ambulatory Orders Medication Instructions Recorded Confirmed Dextroamphetamine/Amphetamine 15 mg PO BID 11/20/16 05/10/23 [Adderall 30 mg Tablet] HYDROcod/ACETAM 5/325 [[place] 5/325] 1 - 2 ea PO Q6H PRN #14 tablet 05/10/23 methocarbamoL [Robaxin] 500 mg PO Q6H PRN #20 tablet 05/10/23 - Allergies Allergies/Adverse Reactions: Allergies Allergy/AdvReac Type Severity Reaction Status Date / Time amitriptyline Allergy Hallucinati Verified 05/10/23 17:51 ons - Social History Does the pt smoke?: No Smoking Status: Never smoker Does the pt drink ETOH?: Yes Does the pt have substance abuse?: No - Immunizations Immunizations are current?: Yes - POLST Patient has POLST: No PD ED PE NORMAL - Vitals Vital signs reviewed: Yes - General General: Alert and oriented X 3, No acute distress - HEENT HEENT: PERRL, Moist mucous membranes - Neck Neck: Supple, no meningeal sign, No bony TTP - Cardiac Cardiac: RRR, Strong equal pulses - Respiratory Respiratory: No respiratory distress, Clear bilaterally - Back Back: No spinal TTP - Derm Derm: Warm and dry - Extremities Extremities: Other - Neuro Neuro: Alert and oriented X 3 - Psych Psych: Normal mood, Normal affect - Free text exam Free text exam: Right shoulder - No tenderness over the glenohumeral joint. No crepitus. No erythema or swelling. Does have pain with external rotation of the shoulder. Also pain with abduction. Feels better in slight flexion and slight internal rotation. Does have some tenderness along the trapezial ridge as well. Neurovascular intact including the axillary nerve. Otherwise normal exam of the right upper extremity Results - Vitals Vitals: Vital Signs - 24 hr 05/10/23 17:46 Temperature 36.2 C L Heart Rate 86 Respiratory 18 Rate Blood Pressure 136/77 H O2 Saturation 100 Oxygen O2 Source Room air - Rads (name of study) Right shoulder x-ray Relevant Findings:: Final report received, See rad report PD Medical Decision Making - ED course Complexity details: reviewed results, re-evaluated patient, considered differential, d/w patient ED course: No acute findings on x-ray of the right shoulder. Appears to be a soft tissue injury, likely strain from carrying heavy bags. Placed in a sling for comfort. Will place on pain medication and muscle relaxants for home. Appears to have some spasm in the trapezial ridge area. No abdominal tenderness. No right upper quadrant pain or tenderness. No evidence of referred pain. Recommend gentle stretching at home. Recommend follow-up with her PCP. Patient counseled regarding signs and symptoms for which I believe and urgent re-evaluation would be necessary. Patient with good understanding of and agreement to plan and is comfortable going home at this time This document was made in part using voice recognition software. While efforts are made to proofread this document, sound alike and grammatical errors may occur. Departure - Departure Disposition: 01 Home, Self Care Clinical Impression: Right shoulder strain Qualifiers: Encounter type: initial encounter Qualified Code(s): S46.911A - Strain of unspecified muscle, fascia and tendon at shoulder and upper arm level, right arm, initial encounter Condition: Good Instructions: ED Sprain Shoulder Follow-Up: Marbella Garcia ARNP [Primary Care Provider] - Within 1 week Prescriptions: HYDROcod/ACETAM 5/325 [[place] 5/325] 1 - 2 ea PO Q6H PRN #14 tablet PRN Reason: Pain methocarbamoL [Robaxin] 500 mg PO Q6H PRN #20 tablet PRN Reason: muscle spasm Comments: Your x-ray does not show any acute abnormalities today. You can wear the sling as needed for comfort, but do not use it longer than 2 to 3 days. You should also be gently stretching your shoulder. Please return if you worsen. Your prescriptions were sent to [facility] in [place]. Please follow-up with your doctor in about 1 week for a recheck. I am prescribing a short course of narcotic pain medication for you. These are potentially dangerous and addictive medications that should be used carefully. These medications may constipate you. Take an wwps-uaw-ahbqhxg stool softener (docusate) twice daily with plenty of water while taking these medications. If you go 24 hours without a bowel movement, take tooq-bfo-yszdzig miralax, per package instructions. Do not drink or drive while taking these medications. If you received narcotic or sedating medications while in the emergency department, do not drive for 24 hours. Store this medication in a safe, secure place and out of reach of children. It is a violation of federal law to give or sell this medication to another person or to use in a manner other than prescribed. The ED will not refill narcotic prescriptions, including prescriptions lost or stolen. To dispose of unwanted medications: 1. [facility] at [address] in [place] has a medication drop box. They accept prescription medications (in pill form) Friday through Friday 9:00 a.m. to 5:00 p.m. 2. The [facility] accepts prescription medications (in pill form only) for disposal year round. Call for more information. 3. Contact the [facility] for the next [facility] sponsored prescription drug collection event. , [phone], or [phone]; Forms: PCP List Discharge Date/Time: 05/10/23 20:06
--- NOTE | 2023-05-10 19:49 | XRAY Report ---
PROCEDURE: Shoulder 2+V RT INDICATIONS: R shoulder pain, no known injury TECHNIQUE: 3 views of the shoulder were acquired. COMPARISON: 02/14/2020 FINDINGS: Bones: No fractures or dislocations. No suspicious bony lesions. Visualized ribs appear intact. Soft tissues: No suspicious soft tissue calcifications. The visualized lungs are within normal limi ts. IMPRESSION: Normal right shoulder plain films. If it would be helpful for clinical management decision making, please consider a dedicated, schedule d shoulder MRI for further evaluation (assuming that there is no contraindication). Reviewed by: Jon Og MD on 05/10/2023 6:48 PM PAULINO Approved by: Jon Og MD on 05/10/2023 6:48 PM PAULINO Station ID: [id number]
[2023-05-10] MEDS: HYDROcod/ACET 5/325 Prepack 4 PO STA (20:05)
== END 2023-05-10 20:06 | disposition home or self-care (01) ==
LOC: ED 17:31
DX: S46.911A Strain of unspecified muscle, fascia and tendon at shoulder and upper arm level, right arm, initial encounter (principal); X58.XXXA Exposure to other specified factors, initial encounter
CPT/HCPCS: 96372; 99283

== ENCOUNTER 2023-06-20 16:27 | Outpatient (CLI) | payer MEDICAID | END 2023-06-20 16:28 | disposition home or self-care (01) | LOC: LAB.N 16:27 | PROVIDERS: ATTEND Nurse Practitioner | DX: Z20.2 Contact with and (suspected) exposure to infections with a predominantly sexual mode of transmission (principal) | CPT/HCPCS: 36415; 86592 ==

== ENCOUNTER 2023-10-08 20:43 | Emergency (ER) | payer MEDICAID ==
[2023-10-08 21:03] VITALS: BP 178/91; O2SAT 100
--- NOTE | 2023-10-08 21:36 | ED Physician Documentation ---
History of Present Illness - Stated complaint Stated Complaint: RT SIDE FACE PX - Chief complaint Chief Complaint: Heent - Additonal information Additional information: 38-year-old female with history of strep, facial abscess, otitis media, c onjunctivitis presents with right-sided facial pain. 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 She has had pain starting in the last day, sharp, in the right side of her face, without fevers, chills, trismus, drooling, voice changes, sudden or severe headache, neck pain or stiffness, photophobia, rash, pain with extraocular motions, sore throat, hearing changes, ear pain or other changes. Pain is near her right mandible, similar to the past. No pain medications taken yet. No recent antibiotics. She has tolerated Augmentin in the past. Someone can drive her. No other new concerns. Per chart review, patient was seen for pain and swelling in her right mandible in 2021, reported history of salivary gland stones and recurring swelling in that area with ENT follow-up in the past at [facility]. She reported at time being told stones were too far back to be reached. She was prescribed narcotics at the time and Augmentin. ROS Constitutional: no fever, no chills Eyes: no visual disturbance, no discharge Ears, Nose, Mouth, Throat: no rhinorrhea, no sore throat Cardiovascular: no chest pain, no palpitations Respiratory: no cough, no shortness of breath Gastrointestinal: no abdominal pain, no vomiting, no diarrhea Genitourinary: no dysuria, no hematuria Musculoskeletal: no back pain, no neck stiffness Skin: no rash, no wound Neurological: no focal weakness, no focal numbness PD PAST MEDICAL HISTORY - Past Medical History Cardiovascular: None Respiratory: None Neuro: Other Endocrine/Autoimmune: None GI: None TRAINING AND DEVELOPMENT HEAD: None : None HEENT: None Psych: Depression, Anxiety Musculoskeletal: Fibromyalgia Derm: None - Past Surgical History Past Surgical History: Yes Ortho: Other /TRAINING AND DEVELOPMENT HEAD: Tubal ligation HEENT: Other - Present Medications Home Medications: Ambulatory Orders Medication Instructions Recorded Confirmed Dextroamphetamine/Amphetamine 15 mg PO BID 11/20/16 10/08/23 [Adderall 30 mg Tablet] Amox/Clav 875/125 [Augmentin] 1 each PO Q12H #20 tablet 10/08/23 Naloxone HCl Nasal [Narcan Nasal] 4 mg NS ONCE PRN #2 kit 10/08/23 oxyCODONE [Roxicodone] 5 mg PO Q4-6H PRN #8 tablet 10/08/23 - Allergies Allergies/Adverse Reactions: Allergies Allergy/AdvReac Type Severity Reaction Status Date / Time amitriptyline Allergy Hallucinati Verified 10/08/23 21:00 ons - Social History Does the pt smoke?: No Smoking Status: Never smoker Does the pt drink ETOH?: Yes Does the pt have substance abuse?: No - Immunizations Immunizations are current?: Yes - POLST Patient has POLST: No PD ED PE NORMAL - Free text exam Free text exam: Const: no acute distress, non toxic appearing; calm, conversant, pleasant Eyes: PERRLA, EOMI HEENT: +R lateral facial tenderness near mandible without focality, erythema, lesions. R TM clear. Uvula midline. No tonsillar swelling or exudate. No edema or swelling of oral cavity including tongue, under tongue, cheeks, submental, sublingual areas. No pain on palpation of throat. No pus or exudate. No drooling. No trismus. No stridor. No mastoid tenderness or erythema. Neck: supple, non-tender. No clear cervical adenopathy currently. Resp: no respiratory distress, clear to auscultation bilaterally Card: regular rate and rhythm, no murmurs Abd: non tender diffusely, no rigidity or rebound or guarding Back: no T or L spine tenderness, no CVA tenderness bilaterally Extrem: no deformities, no swelling bilateral lower extremities Neuro: ANOx4, bioprocess development engineer 2-12 intact, intact sensation and strength all extremities, normal coordination Skin: no rash, warm and dry Results - Vitals Vitals: Vital Signs - 24 hr 10/08/23 20:56 Temperature 36.2 C L Heart Rate 82 Respiratory 18 Rate Blood Pressure 178/91 H O2 Saturation 100 Oxygen O2 Source Room air PD Medical Decision Making - ED course ED course: This patients presentation is most suggestive of potential recurring sialolithiasis, though TMJ or strain or sprain is possible. I do not see clear current evidence of infection, by history exam. No evidence of airway compromise. No meningeal signs. No evidence of orbital cellulitis. No otitis media or otitis externa. No evidence of mastoiditis. Exam is not consistent with strep pharyngitis. I discussed labs and CT imaging with patient, but she would prefer to defer this, given her overall mild exam findings, and rather trial p.o. Augmentin and narcotics which have helped her in the past. Given her prior extensive history, this is not unreasonable, however I discussed the strict importance of close follow-up and return precautions. She understands. She also understands not to drive and how to carefully use narcotics. She agrees to return if she is not proving or has any new or worsening symptoms for additional workup. Otherwise, she will call primary care and ENT. I am prescribing short course oxycodone, Narcan, 10 days twice daily Augmentin and discharging in stable condition in the setting. Patient ambulatory and tolerating PO. Patient aware they should not drive. Exams and vital signs reassuring. Blood pressure is elevated but suitable for outpatient follow up, with no evidence of hypertensive emergency here clinically. Patient questions answered and plan reviewed. Strong return precautions given. Patient discharged. Departure - Departure Disposition: Home, Self Care Clinical Impression: Facial pain Condition: Good Prescriptions: Amox/Clav 875/125 [Augmentin] 1 each PO Q12H #20 tablet Naloxone HCl Nasal [Narcan Nasal] 4 mg NS ONCE PRN #2 kit PRN Reason: narcotic overdose oxyCODONE [Roxicodone] 5 mg PO Q4-6H PRN #8 tablet PRN Reason: Pain Comments: It was a pleasure taking care of you today. It is important to fully read and understand the below. Please ask us if you have any questions. I am prescribing you Augmentin, Oxyocodne and Narcan. Please call your primary care and ENT tomorrow to discuss follow-up and be reevaluated by doctor within 3 to 5 days. No tests or assessments are perfect, and your condition could international exchange coordinator time. If your symptoms change or worsen, it is very important you immediately seek medical care. If you have any new or worsening pain, voice changes, difficulty opening closing your mouth, drooling, shortness of breath, fever, vomiting, confusion, numbness, weakness, or anything else that concerns you, please immediately seek medical care. You have been given or prescribed any narcotics or other sedating medications. Please take only what you must, DO NOT combine with alcohol or other sedating me dications, DO NOT drive while taking, do not allow anyone else to take these medications, and please carefully dispose of what you do not use. If you have been prescribed any medications: please read the drug package inserts on how to properly use the medication and any potential side effects. If you had labs (blood tests) or imaging (CT scan or x-rays) done during your visit: please follow up on the results of these with your primary care doctor, as discussed. In addition, please know the results we received today may be preliminary. Our usual practice is to follow up on tests within a few days of a patient's discharge from the Emergency Department and notify you of any changes. These may lead to changes to your treatment plan. However, the best way to obtain and interpret these test results is through your Primary Care Provider. If you need to update your contact information, please stop by the java front end web developer and alert the Registration personnel before you leave the Emergency Department. Thank you for the opportunity to participate in your healthcare. We are always here and happy to see you in the future. Forms: PCP List Discharge Date/Time: 10/08/23 22:00
[2023-10-08] MEDS: oxyCODONE 5 MG TABLET PO STA (21:57)
[2023-10-08] MEDS: AMOX/CLAV 875 MG/125 MG TABLET PO STA (21:57)
== END 2023-10-08 22:00 | disposition home or self-care (01) ==
LOC: ED 20:43
DX: R51.9 Headache, unspecified (principal)
CPT/HCPCS: 99283; A9270

== ENCOUNTER 2023-10-26 18:49 | Emergency (ER) | payer MEDICAID ==
[2023-10-26 19:05] VITALS: BP 151/91; O2SAT 100
--- NOTE | 2023-10-26 19:20 | ED Physician Documentation ---
History of Present Illness - Stated complaint Stated Complaint: RT SIDE FACE PX - Chief complaint Chief Complaint: Heent - History obtained from History obtained from: Patient - Additonal information Additional information: This is a 38-year-old female who has a history of recurrent sialolithiasis and intermittent right facial pain who presents today with right facial pain. She was seen here 2.5 weeks ago for same and prescribed Augmentin at that time as well as a tablets of oxycodone. She states she did not have improvement with that course of antibiotics and subsequently called her PCP trying to get a new course of antibiotics and pain medication she has also been referred however they advised her to come to the emergency department. She has also been referred to a specialist at [facility] who she states she has seen in the past for similar issue but she does not have a scheduled appointment yet. She is here with right facial pain today that is similar to prior. She has not had any facial swelling, no facial erythema, no fever, no trismus. No sore throat or difficulty managing secretions. Review of Systems Constitutional: reports: Reviewed and negative Eyes: reports: Reviewed and negative Ears: reports: Other (Right facial pain) Nose: reports: Reviewed and negative. denies: Congestion, Sinus pressure / pain Throat: denies: Dental pain / toothache, Oral lesions / sores, Sore throat, Swollen tonsils, Swallowed foreign body Cardiac: reports: Reviewed and negative Respiratory: reports: Reviewed and negative GI: reports: Reviewed and negative : reports: Reviewed and negative Skin: reports: Reviewed and negative Musculoskeletal: reports: Reviewed and negative Neurologic: reports: Reviewed and negative PD PAST MEDICAL HISTORY - Past Medical History Past Medical History: Yes Cardiovascular: None Respiratory: None Neuro: Other Endocrine/Autoimmune: None GI: None IN TUBE CONVERSION 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: None : None HEENT: None Psych: Depression, Anxiety Musculoskeletal: Fibromyalgia Derm: None - Past Surgical History Past Surgical History: Yes Ortho: Other /IN TUBE CONVERSION TECHNICIAN: Tubal ligation HEENT: Other - Present Medications Home Medications: Ambulatory Orders Medication Instructions Recorded Confirmed Dextroamphetamine/Amphetamine 15 mg PO BID 11/20/16 10/08/23 [Adderall 30 mg Tablet] Amox/Clav 875/125 [Augmentin] 1 each PO Q12H #20 tablet 10/08/23 Naloxone HCl Nasal [Narcan Nasal] 4 mg NS ONCE PRN #2 kit 08/28/24 oxyCODONE [Roxicodone] 5 mg PO Q4-6H PRN #8 tablet 10/08/23 Oxycodone HCl/Acetaminophen 1 each PO TID PRN #8 tablet 10/26/23 [Oxycodone-Acetaminophn 7.5-325] - Allergies Allergies/Adverse Reactions: Allergies Allergy/AdvReac Type Severity Reaction Status Date / Time amitriptyline Allergy Hallucinati Verified 10/26/23 19:04 ons - Social History Does the pt smoke?: No Smoking Status: Never smoker Does the pt drink ETOH?: Yes Does the pt have substance abuse?: No - Immunizations Immunizations are current?: Yes - POLST Patient has POLST: No PD ED PE NORMAL - Vitals Vital signs reviewed: Yes - General General: Alert and oriented X 3, No acute distress, Well developed/nourished - HEENT HEENT: Atraumatic, Ears normal, Moist mucous membranes, Pharynx benign, Other (No facial swelling, no facial erythema, no acute dental issues, no oral lesions, no signs of acute sialolithiasis) - Neck Neck: Supple, no meningeal sign, No adenopathy - Cardiac Cardiac: RRR, No murmur - Respiratory Respiratory: No respiratory distress, Clear bilaterally - Derm Derm: Normal color, Warm and dry, No rash Results - Vitals Vitals: Vital Signs - 24 hr 10/26/23 18:59 Temperature 36.2 C L Heart Rate 94 Respiratory 18 Rate Blood Pressure 151/91 H O2 Saturation 100 Oxygen O2 Source Room air PD Medical Decision Making - ED course Complexity details: reviewed old records, considered differential, d/w patient ED course: 38-year-old female with a history of recurrent sialolithiasis And recurrent right facial pain presents with right facial pain As described in HPI. The patient is very well-appearing here physical exam, afebrile nontoxic there is no right facial swelling, erythema, trismus, signs of oral lesions, signs of dental infection, signs of acute sialolithiasis, and they do not recommend recurrent course of antibiotics for this patient. I discussed the potential risk of adverse reaction to antibiotics, C. difficile, antibiotic resistance without clear sign of infection. Advised that typically recurrent stones will improve with supportive measures including staying well-hydrated, utilizing a warm compress massaging the area, and using sour candies. In any case, I do not suspect an acute stone at this time. I considered other diagnoses including TMJ pain, trigeminal or other facial neuralgia, chronic pain, fibromyalgia. I do agree that patient would benefit from follow-up with a specialist. In the meantime, I will give a short course of pain medication to use only as needed, patient was cautioned on the ongoing use of narcotic pain medication due to the risk of tolerance and addiction. She states understanding, she was given a 4 tablet take-home pack year and a tablet prescription to use only as needed. She will follow-up with the specialist tomorrow to try to schedule an appointment. Return precautions reviewed. Departure - Departure Disposition: Home, Self Care Clinical Impression: Chronic facial pain Condition: Good Instructions: ED Chronic Pain Management Prescriptions: Oxycodone HCl/Acetaminophen [Oxycodone-Acetaminophn 7.5-325] 1 each PO TID PRN #8 tablet PRN Reason: Pain >8 Comments: As we discussed, I would not recommend a repeat course of antibiotics today as there is no sign of acute infection and I am concerned that you may develop re sistance or side effects from the recurrent antibiotic use. Your symptoms may be related to the stones but I think more likely you have some sort of trigeminal neuralgia or nerve issue, or possibly TMJ related pain. Please do continue follow-up with the specialist and your primary doctor if you need ongoing pain management. I am giving her a short course of narcotics but I strongly recommend that you do not continue to take narcotic pain medication for this issue Due to to the risk of increasing tolerance and requiring stronger pain medication in the future. I am prescribing a short course of narcotic pain medication for you. These are potentially dangerous and addictive medications that should be used carefully. These medications may constipate you. Take an wnyb-que-qpcofur stool softener (docusate) twice daily with plenty of water while taking these medications. If you go 24 hours without a bowel movement, take gdwy-kcx-vljevja miralax, per package instructions. Do not drink or drive while taking these medications. If you received narcotic or sedating medications while in the emergency department, do not drive for 24 hours. Store this medication in a safe, secure place and out of reach of children. It is a violation of federal law to give or sell this medication to another person or to use in a manner other than prescribed. The ED will not refill narcotic prescriptions, including prescriptions lost or stolen. To dispose of unwanted medications: 1. [facility] a [facility] box for medication in pill form only (no liquids) 8:00 am to 4:30 p.m. Friday-Friday in the lobby of the [facility], [address] Empty pills into ziplock bag before disposal. Call [phone] for information. 2.[facility] is a free service available to all [facility] residents. Go to [email or web address] Note that many narcotic pain relievers also contain Tylenol/acetaminophen. Please ensure that your total dose of acetaminophen from all sources does not exceed 3 g (3000 mg) per day. Forms: PCP List
[2023-10-26] MEDS: oxyCODONE/ACET 5/325 Prepack 4 PO STA (19:36)
== END 2023-10-26 19:37 | disposition home or self-care (01) ==
LOC: ED 18:49
DX: R51.9 Headache, unspecified (principal)
CPT/HCPCS: 99282; 99283